=== PATIENT | female | born 1950 | race Two or more races ===

== ENCOUNTER 2023-12-12 17:14 | Inpatient (IN) | payer MEDICARE, MEDICAID ==
[~2023-12-12] VITALS: Ht 147.3 cm; Wt 65.6 kg
[2023-12-12 18:02] LABS: Urine Bacteria None Seen /hpf (None Seen)
[2023-12-12 18:29] LABS: Urine Blood Negative /uL (Negative); Urine Clarity Clear (Clear); Urine Color Light-Yellow (Yellow); Urine Protein, UAD Negative (Negative); Urine Specific Gravity 1.004 (1.001-1.035); Urine Urobilinogen Normal (Negative); Urine WBC 1 /hpf (0 - 5)
[2023-12-12 18:33] LABS: Basophils # (auto) 0 10 ^3/uL (0-0.2); Basophils % (auto) 0.6 % (0.0-2.0); Eosinophils # (auto) 0.1 10 ^3/uL (0-0.8); Eosinophils % (auto) 0.8 % (0.0-7.0); Hematocrit 36.7 % (36.0-46.0); Hemoglobin 13.2 g/dL (12.2-16.2); Lymphocytes # (auto) 1.5 10 ^3/uL (0.4-5.4); Lymphocytes % (auto) 19.4 % (10.0-50.0); Mean Corpuscular Hemoglobin 31.5 pg (28.0-32.0); Mean Corpuscular Hgb Conc. 35.9 g/dL (32.0-36.0); Mean Corpuscular Volume 87.9 fL (80.0-100.0); Monocytes # (auto) 0.7 10 ^3/uL (0-1.3); Monocytes % (auto) 9.3 % (0.0-12.0); Neutrophils # (auto) 5.6 10 ^3/uL (1.6-8.6); Neutrophils % (auto) 69.9 % (37.0-80.0); Red Blood Cells 4.18 10^6/uL (4.0-5.20); Red Cell Distribution Width 12.9 % (11.8-14.3)
[2023-12-12 18:46] LABS: Alanine Aminotransferase 29 U/L (7-40); Albumin 4.3 g/dL (3.2-4.8); Alkaline Phosphatase 76 U/L (46-116); Anion Gap 7 (5-15); Aspartate Aminotransferase 32 U/L (13-40); BUN/Creatinine Ratio 23.6 (10.0-20.0); Blood Urea Nitrogen 17 mg/dL (9-23); Calcium 9.7 mg/dL (8.7-10.4); Carbon Dioxide 22 mmol/L (20-30); Chloride 93 mmol/L (98-107); Glucose 114 mg/dL (74-106); Potassium 4.7 mmol/L (3.5-5.1); Sodium 122 mmol/L (136-145)
[2023-12-12 18:47] LABS: Total Protein 6.8 g/dL (5.7-8.2)
[2023-12-12 18:51] LABS: INR 1.01 (0.9-1.15); Partial Thromboplastin Time 32.4 SEC (24.5-34.5); Prothrombin Time 10.7 sec (9.3-11.8)
[2023-12-12] MEDS: SODIUM CHLORIDE 0.9% 1,000 ML IV ONE ×2 (19:30→21:48)
[2023-12-12 21:00] VITALS: RESP 14; O2SAT 95
[2023-12-12] MEDS: ONDANSETRON ODT 4 MG TAB PO ONE (21:11)
[2023-12-12] MEDS ORDERED: HYDROcodone-ACET 5/325MG TAB PO PRN (21:30)
[2023-12-12] MEDS ORDERED: DOCUSATE SOD 100 MG CAP PO PRN (21:30)
[2023-12-12] MEDS ORDERED: ACETAMINOPHEN 325 MG TAB PO PRN (21:30)
[2023-12-12] MEDS ORDERED: ONDANSETRON HCL 4 MG/2 ML VIAL IV PRN (21:30)
[2023-12-12 21:55] LABS: Chloride 96 mmol/L (98-107); Potassium 3.7 mmol/L (3.5-5.1); Sodium 123 mmol/L (136-145)
[2023-12-12 21:56] LABS: Anion Gap 11 (5-15); Carbon Dioxide 16 mmol/L (20-30)
[2023-12-12 21:57] LABS: Calcium 9.1 mg/dL (8.5-10.1)
[2023-12-12 22:01] LABS: Glucose 97 mg/dL (74-106)
[2023-12-12 22:02] LABS: BUN/Creatinine Ratio 16.1 (10.0-20.0); Blood Urea Nitrogen 10 mg/dL (9-23)
[2023-12-12] MEDS: SODIUM CHLOR 0.9% PF (SALINE LOCK) 10ML VIAL/SYR IV SCH (22:12)
[2023-12-13] VITALS (7 sets, daily range): BP systolic 110–139; BP diastolic 49–62; PULSE 59–98; RESP 14–20; TEMP 97.4–98.5; O2SAT 94–96
[2023-12-13 03:30] LABS: Chloride 101 mmol/L (98-107); Potassium 3.7 mmol/L (3.5-5.1)
[2023-12-13 03:31] LABS: Anion Gap 7 (5-15); Calcium 9.2 mg/dL (8.7-10.4); Carbon Dioxide 21 mmol/L (20-30)
[2023-12-13 03:33] LABS: Sodium 129 mmol/L (136-145)
[2023-12-13 03:36] LABS: BUN/Creatinine Ratio 15.9 (10.0-20.0); Blood Urea Nitrogen 10 mg/dL (9-23); Glucose 116 mg/dL (74-106)
[2023-12-13] MEDS: ENOXAPARIN SOD 40 MG/0.4 ML SYRINGE SC SCH (10:00)
[2023-12-13 10:28] LABS: Chloride 100 mmol/L (98-107); Potassium 3.9 mmol/L (3.5-5.1); Sodium 129 mmol/L (136-145)
[2023-12-13 10:29] LABS: Anion Gap 7 (5-15); Calcium 9.1 mg/dL (8.5-10.1); Carbon Dioxide 22 mmol/L (20-30)
[2023-12-13 10:34] LABS: BUN/Creatinine Ratio 15.3 (10.0-20.0); Blood Urea Nitrogen 11 mg/dL (9-23); Glucose 186 mg/dL (74-106)
[2023-12-13] MEDS: cefTRIAXone 2GM/50ML D5W 50 ML IV ONE (15:03)
[2023-12-13 15:23] LABS: Chloride 102 mmol/L (98-107); Potassium 4.2 mmol/L (3.5-5.1)
[2023-12-13 15:24] LABS: Anion Gap 10 (5-15); Carbon Dioxide 22 mmol/L (20-30)
[2023-12-13 15:25] LABS: Calcium 9.7 mg/dL (8.5-10.1)
[2023-12-13 15:29] LABS: Glucose 107 mg/dL (74-106); Sodium 134 mmol/L (136-145)
[2023-12-13 15:30] LABS: BUN/Creatinine Ratio 16.9 (10.0-20.0); Blood Urea Nitrogen 15 mg/dL (9-23)
[2023-12-14 01:00] VITALS: BP 103/50; PULSE 70; RESP 18; TEMP 98; O2SAT 94
[2023-12-14 05:00] VITALS: BP 123/64; PULSE 67; RESP 18; TEMP 97.8; O2SAT 99
[2023-12-14 08:00] VITALS: PULSE 70; PULSE 71; RESP 18; O2SAT 97
[2023-12-14] MEDS: cefTRIAXone 1GM/50ML D5W 50 ML IV SCH (09:47)
[2023-12-14] MEDS ORDERED: CIPR-173 PO (09:52)
[2023-12-14 10:04] VITALS: BP 143/63; PULSE 70; RESP 18; TEMP 98.1; O2SAT 97
[2023-12-14] MEDS ORDERED: LISI20TA56 PO (10:28)
[2023-12-14] MEDS: PNEUMOCOCCAL VACC POLYS 25 MCG/0.5 ML VIAL IM ONE (10:59)
[2023-12-14 12:12] VITALS: TEMP 36.7
== END 2023-12-14 13:26 | disposition home or self-care (01) | DRG 640 ==
LOC: ER 17:14 → TELE 21:20 → TELE-CENTR 23:49
PROVIDERS: ADMIT Internal Medicine; ATTEND Internal Medicine
DX: E87.1 Hypo-osmolality and hyponatremia (principal); G93.41 Metabolic encephalopathy; N39.0 Urinary tract infection, site not specified; E11.9 Type 2 diabetes mellitus without complications; E86.0 Dehydration; E78.00 Pure hypercholesterolemia, unspecified; I10 Essential (primary) hypertension; N63.20 Unspecified lump in the left breast, unspecified quadrant; T50.2X5A Adverse effect of carbonic-anhydrase inhibitors, benzothiadiazides and other diuretics, initial encounter; Z85.3 Personal history of malignant neoplasm of breast; Y92.89 Other specified places as the place of occurrence of the external cause; Z90.12 Acquired absence of left breast and nipple
CPT/HCPCS: 36415; 70450; 71045; 71275; 80048; 80053; 81001; 82962; 83690; 83930; 83935; 84484; 85025; 85379; 85610; 85730; 87081; 87086; 93005; 96365; 96366; 96372; G0378; Q0162

== ENCOUNTER 2023-12-17 14:33 | Inpatient (IN) | payer MEDICARE, MEDICAID ==
[~2023-12-17] VITALS: Ht 147.3 cm; Wt 68.8 kg
[~2023-12-17 14:33] MED LIST: CIPR-173 PO; LISI20TA56 PO
[2023-12-17] MEDS ORDERED: LABETALOL HCL 5 MG/ML 4ML SYRINGE IV ONE (15:45)
[2023-12-17 16:39] LABS: Basophils # (auto) 0.1 10 ^3/uL (0-0.2); Basophils % (auto) 0.7 % (0.0-2.0); Eosinophils # (auto) 0.1 10 ^3/uL (0-0.8); Eosinophils % (auto) 1.6 % (0.0-7.0); Hematocrit 38.3 % (36.0-46.0); Hemoglobin 13.2 g/dL (12.2-16.2); Lymphocytes # (auto) 1.8 10 ^3/uL (0.4-5.4); Lymphocytes % (auto) 24.1 % (10.0-50.0); Mean Corpuscular Hemoglobin 31.6 pg (28.0-32.0); Mean Corpuscular Hgb Conc. 34.4 g/dL (32.0-36.0); Mean Corpuscular Volume 91.9 fL (80.0-100.0); Monocytes # (auto) 0.7 10 ^3/uL (0-1.3); Monocytes % (auto) 9.3 % (0.0-12.0); Neutrophils # (auto) 4.9 10 ^3/uL (1.6-8.6); Neutrophils % (auto) 64.3 % (37.0-80.0); Red Blood Cells 4.17 10^6/uL (4.0-5.20); Red Cell Distribution Width 13.3 % (11.8-14.3); White Blood Cell 7.6 10^3/uL (4.4-10.8)
[2023-12-17 16:44] LABS: Alanine Aminotransferase 44 U/L (7-40); Albumin 4.5 g/dL (3.2-4.8); Alkaline Phosphatase 100 U/L (46-116); Anion Gap 8 (5-15); Aspartate Aminotransferase 33 U/L (13-40); BUN/Creatinine Ratio 13.6 (10.0-20.0); Bilirubin, Total 0.5 mg/dL (0.2-1.0); Blood Urea Nitrogen 9 mg/dL (9-23); Carbon Dioxide 21 mmol/L (20-30); Chloride 104 mmol/L (98-107); Glucose 130 mg/dL (74-106); Potassium 3.7 mmol/L (3.5-5.1); Sodium 133 mmol/L (136-145); Total Protein 7.4 g/dL (5.7-8.2)
[2023-12-17] MEDS: LIDOCAINE VISCOUS 2% 15ML UD PO ONE (17:51)
[2023-12-17] MEDS: ASPirin 325 MG TAB PO ONE (17:52)
[2023-12-17] MEDS: NITROGLYCERIN 0.4 MG SL TAB SL ONE ×2 (17:53→20:59)
[2023-12-17] MEDS: PANTOPRAZOLE 40 MG TAB PO ONE (17:54)
[2023-12-17] MEDS: hydrALAZINE HCL 20 MG/ML VL IV ONE (17:55)
[2023-12-17] MEDS: SUCRALFATE 1 GM TAB PO ONE (17:55)
[2023-12-17 18:11] VITALS: PULSE 69; RESP 17; O2SAT 96
[2023-12-17] MEDS: ONDANSETRON HCL 4 MG/2 ML VIAL IV ONE (18:17)
[2023-12-17] MEDS ORDERED: ACETAMINOPHEN 325 MG TAB PO PRN (21:30)
[2023-12-17] MEDS ORDERED: ONDANSETRON HCL 4 MG/2 ML VIAL IV PRN (21:30)
[2023-12-17] MEDS ORDERED: DEXTROSE (50%) 50ML SYRG IV PRN (21:30)
[2023-12-17] MEDS ORDERED: HYDROcodone-ACET 5/325MG TAB PO PRN (21:30)
[2023-12-17] MEDS: ATORVASTATIN 20 MG TAB PO SCH (23:07)
[2023-12-17] MEDS: cloNIDine HCL 0.1 MG TAB PO PRN (23:09)
[2023-12-17] MEDS: ACCU-CHEK COMFORT CURVE STRIP VI SCH (23:11)
[2023-12-17] MEDS: InsuLIN REG 1unit/0.01ml Soln (100units/ml) SC SCH (23:13)
[2023-12-17 23:58] VITALS: BP 120/50; PULSE 68; PULSE 69; RESP 16; RESP 18; TEMP 98.2; O2SAT 95; O2SAT 97
[2023-12-18] MEDS ORDERED: ATEN25TA PO (00:41)
[2023-12-18] MEDS ORDERED: METF-372 PO (00:41)
[2023-12-18] MEDS ORDERED: TRAM50TA2 PO (00:41)
[2023-12-18] MEDS ORDERED: ATOR40TA52 PO (00:41)
[2023-12-18] MEDS ORDERED: CLOP75TA70 PO (00:41)
[2023-12-18 05:00] VITALS: BP 130/88; PULSE 86; RESP 18; TEMP 98.1; O2SAT 98
[2023-12-18] MEDS: PANTOPRAZOLE 40 MG TAB PO SCH (06:01)
[2023-12-18 06:55] LABS: Basophils # (auto) 0 10 ^3/uL (0-0.2); Basophils % (auto) 0.8 % (0.0-2.0); Eosinophils # (auto) 0.1 10 ^3/uL (0-0.8); Eosinophils % (auto) 1.9 % (0.0-7.0); Hemoglobin 12.1 g/dL (12.2-16.2); Lymphocytes # (auto) 1.3 10 ^3/uL (0.4-5.4); Lymphocytes % (auto) 25.6 % (10.0-50.0); Mean Corpuscular Hemoglobin 31.7 pg (28.0-32.0); Mean Corpuscular Hgb Conc. 34.7 g/dL (32.0-36.0); Mean Corpuscular Volume 91.4 fL (80.0-100.0); Monocytes # (auto) 0.6 10 ^3/uL (0-1.3); Monocytes % (auto) 11.5 % (0.0-12.0); Neutrophils # (auto) 3.1 10 ^3/uL (1.6-8.6); Neutrophils % (auto) 60.2 % (37.0-80.0); Nucleated Red Blood Cells % 0.1 %; Red Blood Cells 3.83 10^6/uL (4.0-5.20); Red Cell Distribution Width 13.5 % (11.8-14.3); White Blood Cell 5.2 10^3/uL (4.4-10.8)
[2023-12-18 07:01] LABS: Chloride 105 mmol/L (98-107); Potassium 3.8 mmol/L (3.5-5.1); Sodium 135 mmol/L (136-145)
[2023-12-18 07:02] LABS: Anion Gap 8 (5-15); Calcium 9.4 mg/dL (8.5-10.1); Carbon Dioxide 22 mmol/L (20-30)
[2023-12-18 07:07] LABS: BUN/Creatinine Ratio 12.7 (10.0-20.0); Blood Urea Nitrogen 8 mg/dL (9-23); Glucose 127 mg/dL (74-106)
[2023-12-18 08:58] VITALS: BP 115/60; PULSE 61; RESP 16; TEMP 98.1; O2SAT 98
[2023-12-18] MEDS: LISINOPRIL 20 MG TAB PO SCH (11:41)
[2023-12-18] MEDS: ATENOLOL 25 MG TAB PO SCH (11:45)
[2023-12-18] MEDS: CLOPIDOGREL BISULFATE 75 MG TAB PO SCH (11:45)
[2023-12-18 13:00] VITALS: BP 107/63; PULSE 62; RESP 20; TEMP 98.1; O2SAT 95
[2023-12-18 17:05] VITALS: BP 107/63; PULSE 62; RESP 20; TEMP 98.1; O2SAT 95
== END 2023-12-18 17:40 | disposition home or self-care (01) | DRG 392 ==
LOC: ER 14:33 → OVERFLOW 22:21 → EAST 23:43
PROVIDERS: ADMIT Nurse Practitioner; ATTEND Nurse Practitioner
DX: K29.70 Gastritis, unspecified, without bleeding (principal); I16.0 Hypertensive urgency; I25.10 Atherosclerotic heart disease of native coronary artery without angina pectoris; E78.5 Hyperlipidemia, unspecified; E11.9 Type 2 diabetes mellitus without complications; I45.10 Unspecified right bundle-branch block; K21.9 Gastro-esophageal reflux disease without esophagitis; Z95.5 Presence of coronary angioplasty implant and graft; Z85.3 Personal history of malignant neoplasm of breast
CPT/HCPCS: 36415; 71045; 74176; 80048; 80053; 82962; 83690; 83880; 84484; 85025; 87081; 93005; G0378; J1815; J2405; J3490

== ENCOUNTER 2024-07-26 06:19 | Day surgery (SDC) | payer MEDICARE, MEDICAID ==
[~2024-07-26] VITALS: Ht 165.1 cm; Wt 65.3 kg
[~2024-07-26 06:19] MED LIST changes: +ASPI-543 PO; +ATEN25TA PO; +ATOR40TA52 PO; -CIPR-173 PO; +CLOP75TA70 PO; +ENAL1TAB48 PO; +ISOS1TAB28 PO; -LISI20TA56 PO; +METF-372 PO; +TRAM50TA2 PO
[2024-07-26] MEDS ORDERED: IODIXANOL 320MG/ML 100ML BTL IV ONE (07:33)
[2024-07-26] MEDS ORDERED: ANGIOMAX 250 MG VIAL IV ONE (08:36)
[2024-07-26] MEDS ORDERED: VERAPAMIL 2.5MG/ML INJ 2ML VIAL IV ONE (08:36)
[2024-07-26] MEDS ORDERED: fentaNYL CITRATE 100 MCG/2 ML VL ONE (08:36)
[2024-07-26] MEDS ORDERED: SODIUM CHL 0.9% 0 ML ONE (08:37)
[2024-07-26] MEDS ORDERED: LIDOCAINE 2%HCL (LOCAL ANESTH.) INJ 20ML MDV ONE (08:37)
[2024-07-26] MEDS ORDERED: MIDAZOLAM HCL 2MG/2ML 2ml VIAL (1mg/ml) ONE (08:37)
[2024-07-26] MEDS ORDERED: HEPARIN SODIUM (PORCINE) 5000 UNITS/ML 1ML VIAL ONE (09:02)
--- NOTE | 2024-07-26 09:14 | DVHOP2 ---
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 PREOPERATIVE DIAGNOSES: cad POSTOP DIAGNOSIS: cad DESCRIPTION OF PROCEDURE: The patient or appropriate family signed informed consent understanding the risks, benefits and alternatives of the procedure, they wished to proceed. The patient was brought to the cardiac lab intern in n.p.o. state. The patient was prepped in a sterile fashion. Sedation was used per cardiac cath protocol. I administered 2 mL of 2% lidocaine to the right wrist. With an antegrade front wall puncture. I cannulated the right radial artery and placed a 6-Indian Glidesheath slender. Next, an intra-arterial spasmolytic was administered. Next, a - 5 Indian Blanco catheter and were used for coronary angiogram and LVEDP measurement and pressure pullback. At the completion of procedure, all guides and wires were removed, and there were no immediate complications. FINDINGS: RCA: Moderate vessel off the right sinus of Valsalva, there is a mid RCA EXPORT AGENT with L to R collaterals. this is unchanged from 202 LEFT MAIN: Moderate size left main, it bifurcates into LAD and circumflex. mild plaque. CIRCUMFLEX: Moderate caliber vessel coming off the left main . prox CX has a 95% calcific stenosis (this is new from 202), several OM branches with grade disease. laterally LAD: LAD is a moderate caliber vessel coming of the left main. distal LAD has a calcific 95% stenosis (similar to 2022) with a distal apical LAD target LVEDP of 6 mmhg CONCLUSIONS: 1. severe 3v cad PLAN: Aggressive risk factor modification and medical management for the patient. consider cabg VERONICA Li MD Jul 26, 2024 09:14
--- NOTE | 2024-07-26 10:47 | DVH ---
CHEST RADIOGRAPH Indication: Pain Technique: Single frontal view of the chest was obtained COMPARISON: None FINDINGS: Lines and Tubes: None Lungs: Clear Pleura: No effusion. No pneumothorax. Cardiomediastinal contours: Unremarkable Bones: Unremarkable IMPRESSION: No acute disease.
--- NOTE | 2024-07-26 14:20 | ECG ---
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
== END 2024-07-26 11:50 | disposition home or self-care (01) ==
LOC: CATH 06:19
PROVIDERS: ATTEND Internal Medicine
DX: I25.10 Atherosclerotic heart disease of native coronary artery without angina pectoris (principal); I44.0 Atrioventricular block, first degree; I45.10 Unspecified right bundle-branch block; E11.9 Type 2 diabetes mellitus without complications; I10 Essential (primary) hypertension; E66.9 Obesity, unspecified; E78.00 Pure hypercholesterolemia, unspecified; R06.02 Shortness of breath; I34.0 Nonrheumatic mitral (valve) insufficiency; Z90.710 Acquired absence of both cervix and uterus; Z90.49 Acquired absence of other specified parts of digestive tract; Z79.899 Other long term (current) drug therapy; Z98.890 Other specified postprocedural states
CPT/HCPCS: 71045; 93005; 93458; C1894; J1644; J2250; J3010; Q9967; 99152

== ENCOUNTER 2024-08-08 22:13 | Emergency (ER) | payer MEDICARE, MEDICAID ==
[~2024-08-08] VITALS: Ht 147.3 cm; Wt 63.7 kg
[2024-08-08 23:07] LABS: Urine Bacteria None Seen /hpf (None Seen)
[2024-08-08 23:10] LABS: Basophils # (auto) 0 10 ^3/uL (0-0.2); Basophils % (auto) 0.6 % (0.0-2.0); Eosinophils # (auto) 0.1 10 ^3/uL (0-0.8); Eosinophils % (auto) 1.4 % (0.0-7.0); Hematocrit 33.8 % (36.0-46.0); Lymphocytes % (auto) 15.6 % (10.0-50.0); Mean Corpuscular Hemoglobin 31.7 pg (28.0-32.0); Mean Corpuscular Hgb Conc. 35.4 g/dL (32.0-36.0); Mean Corpuscular Volume 89.7 fL (80.0-100.0); Monocytes # (auto) 0.7 10 ^3/uL (0-1.3); Monocytes % (auto) 12.1 % (0.0-12.0); Neutrophils # (auto) 4.3 10 ^3/uL (1.6-8.6); Neutrophils % (auto) 70.3 % (37.0-80.0); Nucleated Red Blood Cells % 0.2 %; Platelet Count (auto) 252 10^3/uL (140-450); Red Blood Cells 3.77 10^6/uL (4.0-5.20); Red Cell Distribution Width 13.7 % (11.8-14.3); White Blood Cell 6.1 10^3/uL (4.4-10.8)
--- NOTE | 2024-08-08 23:15 | DVH ---
CHEST RADIOGRAPH Indication: Chest pain Technique: Single frontal view of the chest was obtained Comparison: XY CHEST XRAY 1 VIEW on DOS: 07/26/24, XY CHEST PORTABLE on DOS: 12/17/23, XY CHEST PORTABLE on DOS: 12/12/23 FINDINGS: Lines and Tubes: None Lungs: Clear Pleura: No effusion. No pneumothorax. Cardiomediastinal contours: Unremarkable Bones: Unremarkable IMPRESSION: Clear lungs.
--- NOTE | 2024-08-08 23:16 | DVH ---
CT HEAD WITHOUT CONTRAST INDICATION: Headache, elevated BP COMPARISON: CT HEAD WITHOUT CONTRAST on DOS: 12/12/23 TECHNIQUE: CT of the head without intravenous contrast. RADIATION DOSE: CTDIvol: 49.17 mGy, DLP: 788.37 mGy*cm FINDINGS: There is no evidence of intracranial hemorrhage, infarct, extra-axial collection, mass effect, midli ne shift, herniation or hydrocephalus. The ventricles, sulci and cisterns are normal. The garcia-whit e differentiation is normal. Visualized paranasal sinuses and mastoid air cells are clear. Soft tis sues and osseous structures are unremarkable. IMPRESSION: No abnormality.
[2024-08-08 23:20] LABS: Urine Blood Negative /uL (Negative); Urine Clarity Clear (Clear); Urine Color Light-Yellow (Yellow); Urine Protein, UAD Negative (Negative); Urine Specific Gravity 1.009 (1.001-1.035); Urine Squamous Epithelial Cell FEW /hpf (<5); Urine Urobilinogen Normal (Negative); Urine WBC 2 /HPF (0-5)
--- NOTE | 2024-08-08 23:28 | ED.PDOC ---
History of Present Illness HPI Comments 74-year-old female with past medical history pertinent for HTN, DM, presents to ED for left-sided chest pain x4 days, associated with headache, blurry vision, dizziness, nausea. Patient denies any shortness of breath, numbness, tingling, weakness. She describes her headache as a throbbing sensation. Patient states that her chest pain was intermittent, however has constant. She reports taking Tylenol without relief of symptoms. Patient also states that he has been taking her blood pressure at home which has been elevated. Chief Complaint: High Blood Pressure Time Seen by MD: 22:15 Primary Care Provider: Beto Reviewed Notes: Nurses Notes, Medications, Allergies Allergies: Coded Allergies: NO KNOWN ALLERGIES (Unverified , 07/21/24) Home Meds Reported Medications Aspirin (Aspir-Low) 81 Mg Tab, 81 MG PO DAILY for CAD, MG 07/21/24 Isosorbide Mononitrate (Isosorbide Mononitrate Er) 30 Mg Tab, 1 TAB PO DAILY for HTN, #30 TAB 5 Refills 07/21/24 Enalapril Maleate (Enalapril Maleate) 20 Mg Tab, 1 TAB PO DAILY for HTN, #90 TAB 1 Refill 07/21/24 Clopidogrel Bisulfate (CLOPIDOGREL) 75 Mg Tab, 1 TAB PO DAILY for S/P CARDIAC STENT 12/18/23 Metformin Hydrochloride (Metformin Hcl) 1,000 Mg Tab, 1 TAB PO BID for DIABETES 12/18/23 Atorvastatin Calcium (ATORVASTATIN CALCIUM) 40 Mg Tab, 1 TAB PO DAILY for HIGH CHOLESTEROL 12/18/23 Atenolol (Atenolol) 25 Mg Tab, 1 TAB PO DAILY for HTN 12/18/23 Tramadol Hcl (Tramadol Hcl) 50 Mg Tab, 1 TAB PO DAILYPRN PRN for PAIN 12/18/23 Mode of Arrival: Ambulatory Past Medical History PAST MEDICAL HISTORY: DM, High Lipids, HTN Surgical History: Denies 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 Family History Family History: Reviewed,noncontributory to illness, No family hx of Cancer, No family hx of DM, No family hx of Heart arthur, No family hx of HTN, No family hx ofKidney arthur, No family hx of Liver arthur, No family hx of Lung arthur, No family hx of Stroke Social History Smoker: Non-Smoker Alcohol: Denies ETOH Use Drugs: Denies Drug Use Constitutional: denies: chills, diaphoresis, fatigue, fever, malaise, sweats, weakness, others EENTM: reports: blurred vision; denies: double vision, ear bleeding, ear discharge, ear drainage, ear pain, ear ringing, eye pain, eye redness, hearing loss, mouth pain, mouth swelling, nasal discharge, nose bleeding, nose congestion, nose pain, photophobia, tearing, throat pain, throat swelling, voice changes, others Respiratory: denies: cough, hemoptysis, orthopnea, SOB at rest, shortness of breath, SOB with excertion, stridor, wheezing, others Cardiovascular: reports: chest pain, dizzy spells; denies: diaphoresis, Dyspnea on exertion, edema, irregular heart beat, left arm pain, lightheadedness, palpitations, PND, syncope, others Gastrointestinal: reports: nausea; denies: abdomen distended, abdominal pain, blood streaked bowels, constipated, diarrhea, dysphagia, difficulty swallowing, hematemesis, melena, poor appetite, poor fluid intake, rectal bleeding, rectal pain, vomiting, others Genitourinary: denies: abnormal vagina bleeding, burning, dyspareunia, dysuria, flank pain, frequency, hematuria, incontinence, pain, , vagina discharge, urgency, others Neurological: reports: headache; denies: dizziness, fainting, left sided numbness, left sided weakness, numbness, paresthesia, pre-existing deficit, right sided numbness, right sided weakness, seizure, speech problems, tingling, tremors, weakness, others Musculoskeletal: denies: back pain, gout, joint pain, joint swelling, muscle pain, muscle stiffness, neck pain, others Integumetry: denies: bruises, change in color, change in hair/nails, dryness, laceration, lesions, lumps, rash, wounds, others Allergic/Immunocompromised: denies: Difficulty Healing, Frequent Infections, Hives, Itching, others Hematologic/Lymphatic: denies: anemia, blood clots, easy bleeding, easy bruisi ng, swollen glands, others Endocrine: denies: excessive hunger, excessive sweating, excessive thirst, exce ssive urination, flushing, intolerance to cold, intolerance to heat, unexplained weight gain, unexplained weight loss, others Psychiatric: denies: anxiety, bipolar disorder, depression, hopeless, panic disorder, schizophrenia, sleepless, suicidal, others All Other Systems: Reviewed and Negative Physical Exam General Appearance: No Apparent Distress, Normal HEENT: Normal ENT Inspection, Pharynx Normal, TMs Normal Neck: Full Range of Motion, Non-Tender, Normal, Normal Inspection Respiratory: Chest Non-Tender, Lungs Clear, No Accessory Muscle Use, No Respiratory Distress, Normal Breath Sounds Cardiovascular: No Edema, No JVD, No Murmur, No Gallop, Normal Peripheral Pulses, Regular Rate/Rhythm Breast Exam: Deferred Gastrointestinal: No Organomegaly, Non Tender, No Pulsatile Mass, Normal Bowel Sounds, Soft Genitalia: Deferred Pelvic: Deferred Rectal: Deferred Extremities: No calf tenderness, Normal capillary refill, Normal inspection, Normal range of motion, Non-tender, No pedal edema Musculoskeletal : Apperance: Normal Neurologic: Alert, hiv prevention specialist II-XII nml as Tested, No Motor Deficits, Normal Affect, Normal Mood, No Sensory Deficits, Other (5/5 strength in bilateral upper and lo wer extremities. Negative facial droop. Negative pronator drift.) Cerebellar Function: Normal Reflexes: Normal Skin: Dry, Normal Color, Warm Lymphatic: No Adenopathy Was a procedure done? Was a procedure done?: No EKG EKG : Pulse Rate (adult): 72 [place]: Normal Cardiac Rhythm: NSR Block: RBBB Hypertrophy: None ST: Normal Differential Dx Considerations may include: ACS, CVA, TIA, musculoskeletal chest pain, hypertensive urgency, hypertensive em ergency X-Ray, Labs, Meds, VS Vital Signs Date Time Temp Pulse Resp B/P (MAP) Pulse Ox O2 Delivery O2 Flow Rate FiO2 08/09/24 00:56 107/55 08/09/24 00:55 71 18 107/55 (72) 94 08/09/24 00:13 96 Room Air* 0 21 08/08/24 23:59 169/62 08/08/24 23:55 98.2 71 18 169/62 (97) 95 98.2 08/08/24 23:27 72 08/08/24 22:38 72 08/08/24 22:20 98.7 83 14 183/83 (116) 98 Lab Test 08/09/24 01:20 08/08/24 23:59 08/08/24 22:45 08/08/24 22:32 Range/Units Troponin I High Sensitivity 7 6 6 </=34 ng/L White Blood Count 6.1 4.4-10.8 10^3/uL Red Blood Count 3.77 L 4.0-5.20 10^6/uL Hemoglobin 12.0 L 12.2-16.2 g/dL Hematocrit 33.8 L 36.0-46.0 % Mean Corpuscular Volume 89.7 80.0-100.0 fL Mean Corpuscular Hemoglobin 31.7 28.0-32.0 pg Mean Corpuscular Hemoglobin Concent 35.4 32.0-36.0 g/dL Red Cell Distribution Width 13.7 11.8-14.3 % Platelet Count 252 140-450 10^3/uL Mean Platelet Volume 7.2 6.9-10.8 fL Neutrophils (%) (Auto) 70.3 37.0-80.0 % Lymphocytes (%) (Auto) 15.6 10.0-50.0 % Monocytes (%) (Auto) 12.1 H 0.0-12.0 % Eosinophils (%) (Auto) 1.4 0.0-7.0 % Basophils (%) (Auto) 0.6 0.0-2.0 % Neutrophils # (Auto) 4.3 1.6-8.6 10 ^3/uL Lymphocytes # (Auto) 1.0 0.4-5.4 10 ^3/uL Monocytes # (Auto) 0.7 0-1.3 10 ^3/uL Eosinophils # (Auto) 0.1 0-0.8 10 ^3/uL Basophils # (Auto) 0 0-0.2 10 ^3/uL Nucleated Red Blood Cells 0.2 % Sodium Level 129 L 136-145 mmol/L Potassium Level 3.5 3.5-5.1 mmol/L Chloride Level 95 L 98-107 mmol/L Carbon Dioxide Level 21 20-31 mmol/L Anion Gap 13 5-15 Blood Urea Nitrogen 15 9-23 mg/dL Creatinine 0.75 0.550-1.02 mg/dL Glomerular Filtration Rate Calc 83 >90 mL/min BUN/Creatinine Ratio 20.0 10.0-20.0 Serum Glucose 147 H 74-106 mg/dL Calcium Level 10.2 8.7-10.4 mg/dL Total Bilirubin 0.9 0.2-1.0 mg/dL Aspartate Amino Transferase (AST) 27 13-40 U/L Alanine Aminotransferase (ALT) 24 7-40 U/L Alkaline Phosphatase 71 46-116 U/L B-Type Natriuretic Peptide 248.55 0-100 pg/mL Total Protein 6.9 5.7-8.2 g/dL Albumin 4.5 3.2-4.8 g/dL POC Glucose 151 H 70-106 mg/dl Test 08/08/24 22:28 Range/Units Urine Color Light-yellow Yellow Urine Clarity Clear Clear Urine pH 6.0 5.0-9.0 Urine Specific [place] 1.009 1.001-1.035 Urine Protein Negative Negative Urine Ketones Negative Negative Urine Blood Negative Negative /uL Urine Nitrite Negative Negative Urine Bilirubin Negative Negative Urine Urobilinogen Normal Negative mg/dL Urine Leukocyte Esterase Negative Negative /uL Urine RBC 2 0 - 4 /hpf Urine Microscopic WBC 2 0-5 /HPF Urine Squamous Epithelial Cells Few <5 /hpf Urine Bacteria None seen None Seen /hpf Urine Glucose Normal Normal mg/dL Current Medications Medications (Trade) Dose Ordered Sig/Bailey Route Start Time Stop Time Status Last Admin Clonidine HCl (Catapres Tablet) 0.1 mg ONCE ONCE PO 08/08/24 22:30 08/08/24 22:31 DC 08/08/24 23:59 Aspirin 325 mg ONCE ONCE PO 08/08/24 23:30 08/08/24 23:31 DC 08/08/24 23:59 X-Ray, Labs, Meds, VS Comment CT Head IMPRESSION: No abnormality. CXR IMPRESSION: Clear lungs. MDM: Patient with history as above presented with chest pain. History obtained from cynthia daigle. Patient was nontoxic, stable, afebrile, ambulatory, no acute distress. Exam as above. Labs reviewed. CBC did not show leukocytosis. Mild anemia noted with hemoglobin at 12 and hematocrit at 33.8. CMP showed mild hyponatremia at 129. Troponin x3 was negative. BNP mildly elevated at 248.55. Urinalysis was negative for acute infection. Independently reviewed imaging. Chest x-ray did not show acute cardiopulmonary disease. CT head was negative. EKG was reviewed by me. Normal sinus rhythm at 72 beats per minute, right bundle-branch block, no hypertrophy, no AV blocks, no ST-T wave abnormalities. Reviewed external records. All findings were discussed with the patient. Differential diagnosis considered. Overall presentation is consistent with hypertensive urgency. Low suspicion for hypertensive emergency, ACS, CVA. Patient was treated with clonidine and aspirin with improvement in symptoms. Offered patient to be admitted to the hospital for further evaluation, however patient states that she has a follow up appointment with her PCP and will like to be discharged home. She states that her symptoms have improved. She denies any headache or chest pain. Patient states that she will return to the ED immediately for worsening symptoms. Patient was reevaluated and vital signs were reviewed. Consideration was given for admission, but the patient was stable for outpatient management. Disposition: Discussed the need to follow up diagnostics, including incidental findings. Discharged the patient with instructions to obtain outpatient follow up in 1-2 days of today's symptoms and findings, with strict return precautions if patient develops new or worsening symptoms. This medical document was created using the [employer] system. Although this document has been carefully reviewed, there may still be some phonetic and typographical errors, which are due to imperfections of the software program, and do not reflect any compromise in the patient's medical care. Time of 1ST Reevaluation: 23:27 Reevaluation 1ST: Improved Time of 2ND Reevaluation: 02:32 Reevaluation 2ND: Improved Patient Education/Counseling: Diagnosis, Treatment, Prognosis, Need For Follow Up Family Education/Counseling: No Family Present Departure 1 Departure Time of Disposition: 02:33 Impression: Primary Impression: Hypertensive urgency Disposition: 01 HOME / SELF CARE / HOMELESS Condition: Fair Critical Care Note Critical Care Time?: No Stability Stability form required: No Heart Score Heart Score: Heart Score Response (Comments) Value History Slightly Suspicious 0 EKG Normal 0 Age >65 2 Risk Factors >3 or Hx ASHD 2 Troponin Normal limit 0 Total 4 ERIC TSANG PAC Aug 08, 2024 23:27
[2024-08-08 23:30] LABS: Alanine Aminotransferase 24 U/L (7-40); Albumin 4.5 g/dL (3.2-4.8); Alkaline Phosphatase 71 U/L (46-116); Anion Gap 13 (5-15); Aspartate Aminotransferase 27 U/L (13-40); Bilirubin, Total 0.9 mg/dL (0.2-1.0); Blood Urea Nitrogen 15 mg/dL (9-23); Calcium 10.2 mg/dL (8.7-10.4); Carbon Dioxide 21 mmol/L (20-31); Chloride 95 mmol/L (98-107); Glucose 147 mg/dL (74-106); Potassium 3.5 mmol/L (3.5-5.1); Sodium 129 mmol/L (136-145); Total Protein 6.9 g/dL (5.7-8.2)
[2024-08-08] MEDS: cloNIDine HCL 0.1 MG TAB PO ONE (23:59)
[2024-08-08] MEDS: ASPirin 325 MG TAB PO ONE (23:59)
[2024-08-09 00:13] VITALS: O2SAT 96
[2024-08-09 03:10] VITALS: BP 135/61; PULSE 63; RESP 18; TEMP 98.2; O2SAT 95
--- NOTE | 2024-08-09 10:51 | ECG ---
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
== END 2024-08-09 03:10 | disposition home or self-care (01) ==
LOC: ER 22:13
DX: I16.0 Hypertensive urgency (principal); E11.9 Type 2 diabetes mellitus without complications; I10 Essential (primary) hypertension; E78.5 Hyperlipidemia, unspecified; R07.89 Other chest pain; R42 Dizziness and giddiness; R11.0 Nausea; Z79.899 Other long term (current) drug therapy; Z79.02 Long term (current) use of antithrombotics/antiplatelets
CPT/HCPCS: 36415; 70450; 71045; 80053; 81001; 82962; 83880; 84484; 85025; 93005

== ENCOUNTER 2025-02-28 23:54 | Inpatient (IN) | payer MEDICARE, MEDICAID ==
[~2025-02-28] VITALS: Ht 147.3 cm; Wt 64.8 kg
--- NOTE | 2025-03-01 00:29 | ED.PDOC ---
HPI Comments HPI: Poor Historian. 74-year-old female presents to emergency department for one day history of left- sided chest pain radiating to left upper extremity. She checked her blood pressure which was normal. She took some aspirin which helped her with the symptoms and she took some atenolol as well prior to arrival. Patient states that she feels better now. Patient has associated dizziness and nausea with the chest discomfort. Patient states that this happened while she was at rest. No alleviating or precipitating factors. Past Medical History: Hypertension, hyperlipidemia, diabetes Past Surgical History: Cholecystectomy, hysterectomy, some breast surgery REVIEW OF SYSTEMS: CONSTITUTIONAL: Denies acute: fever, diaphoresis, chills, generalized weakness. HEAD: Denies acute: headache, photophobia Eyes: Denies acute: Double vision, vision loss, eye pain, eye discharge. EARS: Denies acute: tinnitus, hearing loss, ear discharge, ear pain, THROAT: Denies acute: sore throat, swelling, difficulty swallowing , pain with swallowing, change in voice. NECK: Denies acute: neck pain, neck swelling, stiff neck. HEART: Denies acute : , palpitations, LUNGS: Denies acute: SOB, wheezing, cough, hemoptysis ABDOMEN: Denies acute: abdominal pain, Vomiting, diarrhea, melena , hematemesis, hematochezia SKIN: Denies acute: rash, redness, lesions, itchiness. EXTREMITIES: Denies acute: calf pain, numbness, tingling, weakness, denies pain in extremity. Denies acute: Low back pain. Neuro: Denies acute: focal neurological deficit, motor or sensory focal neurological deficit, tremors, seizure like activity, confusion, change in mental status, loss of bowel or bladder function, cauda equina like symptoms. : Denies acute: dysuria, hematuria, flank pain, increase in urinary frequency. PSYCH: Denies acute: hallucination, suicidal ideation, homicidal ideation. FEMALE: Denies acute: abnormal vaginal bleeding, foul odor, unusual discharge. PHYSICAL EXAM: General: ----no----acute distress, awake and alert. Head: normocephalic, atraumatic. Neck: supple, trachea is midline, no swelling. Throat: Normal phonation. Eyes:, no erythema, no purulent discharge, no proptosis, no icterus. Heart: regular rate, regular rhythm, no significant murmur appreciated. Lungs: no apparent respiratory distress, Able to speak in full sentences. No wheezing, no rhonchi, no crackles. No stridors Clear to auscultation bilaterally. Abdomen: non tender to palpation, non distended, soft, no guarding, no rebound, + bowel sounds. Neuro: Awake, Alert, oriented to name, self, situation, follows commands GCS=15. Speech is normal. Skin: no petechia, no purpura, no cyanosis, non-pale, not jaundice. Lower extremities: --no - Pitting edema no deformity, no focal swelling, no calf TTP. Makes eye contact. moves all four extremities. Face: no apparent facial droop. ED COURSE: DISCLAIMER: This medical document was created using an electronic medical record system with voice recognition software and computerized dictation system. Although this do cument has been carefully reviewed, there might still be some phonetic and typographical errors. Occasional wrong-word or "sound-alike" substitutions may have occurred due to the inherent limitations of voice recognition software. These areas are purely typographical due to imperfections of the software programs and do not reflect any compromise in the patient's medical care. Please read the chart carefully and recognize, using context, where these substitutions have occurred. Chief Complaint: Chest Pain Time Seen by MD: 00:18 Primary Care Provider: Beto Montanez Notes: Allergies Allergies: Coded Allergies: NO KNOWN ALLERGIES (Unverified , 07/21/24) Home Meds Reported Medications Aspirin (Aspir-Low) 81 Mg Tab, 81 MG PO DAILY for CAD, MG 07/21/24 Isosorbide Mononitrate (Isosorbide Mononitrate Er) 30 Mg Tab, 1 TAB PO DAILY for HTN, #30 TAB 5 Refills 07/21/24 Enalapril Maleate (Enalapril Maleate) 20 Mg Tab, 1 TAB PO DAILY for HTN, #90 TAB 1 Refill 07/21/24 Clopidogrel Bisulfate (CLOPIDOGREL) 75 Mg Tab, 1 TAB PO DAILY for S/P CARDIAC STENT 12/18/23 Metformin Hydrochloride (Metformin Hcl) 1,000 Mg Tab, 1 TAB PO BID for DIABETES 12/18/23 Atorvastatin Calcium (ATORVASTATIN CALCIUM) 40 Mg Tab, 1 TAB PO DAILY for HIGH CHOLESTEROL 12/18/23 Atenolol (Atenolol) 25 Mg Tab, 1 TAB PO DAILY for HTN 12/18/23 Tramadol Hcl (Tramadol Hcl) 50 Mg Tab, 1 TAB PO DAILYPRN PRN for PAIN 12/18/23 Information Source: Patient Mode of Arrival: Wheelchair Past Medical History PAST MEDICAL HISTORY: DM, High Lipids, HTN Surgical History: 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 Was a procedure done?: No CP Differential Dx Differential Diagnosis: N/A Differential Diagnosis: Other (Ddx include but not limitied to gastritis, m usculoskeletal pain, radiculopathy, atypical chest pain, dissection, aneurysm, ACS, unstable angina, hiatal hernia, GERD, anxiety, costochondritis, PE, pneumothroax, neoplasm, cardiac ischemia, drug abuse, anemia.) X-Ray, Labs, Meds, VS Vital Signs Date Time Temp Pulse Resp B/P (MAP) Pulse Ox O2 Delivery O2 Flow Rate FiO2 03/01/25 01:31 62 03/01/25 00:20 63 02/28/25 23:57 97.9 68 19 148/72 97 97.9 Lab Test 03/01/25 00:20 03/01/25 00:08 Range/Units White Blood Count 9.1 4.4-10.8 10^3/uL Red Blood Count 4.01 4.0-5.20 10^6/uL Hemoglobin 12.5 12.2-16.2 g/dL Hematocrit 35.2 L 36.0-46.0 % Mean Corpuscular Volume 87.7 80.0-100.0 fL Mean Corpuscular Hemoglobin 31.1 28.0-32.0 pg Mean Corpuscular Hemoglobin Concent 35.5 32.0-36.0 g/dL Red Cell Distribution Width 14.3 11.8-14.3 % Platelet Count 249 140-450 10^3/uL Mean Platelet Volume 7.3 6.9-10.8 fL Neutrophils (%) (Auto) 75.2 37.0-80.0 % Lymphocytes (%) (Auto) 12.3 10.0-50.0 % Monocytes (%) (Auto) 10.2 0.0-12.0 % Eosinophils (%) (Auto) 1.8 0.0-7.0 % Basophils (%) (Auto) 0.5 0.0-2.0 % Neutrophils # (Auto) 6.8 1.6-8.6 10 ^3/uL Lymphocytes # (Auto) 1.1 0.4-5.4 10 ^3/uL Monocytes # (Auto) 0.9 0-1.3 10 ^3/uL Eosinophils # (Auto) 0.2 0-0.8 10 ^3/uL Basophils # (Auto) 0 0-0.2 10 ^3/uL Nucleated Red Blood Cells 0.0 % Sodium Level 127 L 136-145 mmol/L Potassium Level 3.7 3.5-5.1 mmol/L Chloride Level 90 L 98-107 mmol/L Carbon Dioxide Level 25 20-31 mmol/L Anion Gap 12 5-15 Blood Urea Nitrogen 13 9-23 mg/dL Creatinine 0.72 0.550-1.02 mg/dL Glomerular Filtration Rate Calc 87 >90 mL/min BUN/Creatinine Ratio 18.1 10.0-20.0 Serum Glucose 151 H 74-106 mg/dL Calcium Level 9.7 8.7-10.4 mg/dL Total Bilirubin 1.3 H 0.2-1.0 mg/dL Aspartate Amino Transferase (AST) 33 13-40 U/L Alanine Aminotransferase (ALT) 28 7-40 U/L Alkaline Phosphatase 81 46-116 U/L Troponin I High Sensitivity 23 </=34 ng/L B-Type Natriuretic Peptide 141.60 0-100 pg/mL Total Protein 7.3 5.7-8.2 g/dL Albumin 4.5 3.2-4.8 g/dL POC Glucose 155 H 70-106 mg/dl [facility] [address] [facility] [address] Ph: [phone] DIAGNOSTIC IMAGING Diagnostic Imaging Report : [id number] Signed PATIENT: LAURITA HAAS DEACCT: [id number] UNIT: [id number] : 1950 LOC: ER ROOM / BED: / AGE / SEX: 74 / F ADM STATUS: REG ER SERVICE ORDERING PHYSICIAN: AMAYA SHERIDAN DO PROCEDURE(s): CXRP - CHEST PORTABLE REASON: cp sob ORDER NUMBER(s): [id number], ACCESSION NUMBER(s): [id number] CHEST RADIOGRAPH Indication: cp sob Technique: 1 view Comparison: XY CHEST XRAY 1 VIEW on DOS: 08/08/24, XY CHEST XRAY 1 VIEW on DOS: 07/26/24, XY CHEST PORTABLE on DOS: 12/17/23, XY CHEST PORTABLE on DOS: 12/12/23 FINDINGS: Lines and Tubes: None Lungs/Pleura: No focal consolidation, pleural effusion or pneumothorax. Mild infrahilar scarring/atelectasis. Cardiomediastinum: Unremarkable. Other: No acute osseous abnormality. IMPRESSION: 1. No acute cardiopulmonary abnormality. ATED BY: SHARON HUDSON MD DICTATED DATE/TIME: 03/01/25204 SIGNED BY: SHARON HUDSON MD SIGNED DATE/TIME: 03/01/25204 CC: Time of 1ST Reevaluation: 02:12 Reevaluation 1ST: Improved Patient Education/Counseling: Diagnosis, Treatment Family Education/Counseling: Other Comments MDM: patient presented with the above HPI.--cardiac--workup was initiated. patient was found with the above mentioned diagnosis. the following medications were ordered: please refer to order lists of meds and tests obtained by myself Dr. Sheridan. Patient ED course and VS have been stabilized. Patient has been reassessed in the ED and remained in a stable condition. Pertinent incidental findings were discussed with the patient and/or family. Patient/family voices understanding and is agreeable with plan. Patient has been observed in the ED adequate length of time to insure improvement/stability. Escalation of care considered: Consideration of escalation to observation or admission Patient was ADMITTED to the medicine team for further evaluation and treatment of their presentation. All the reports of any imaging studies that were ordered by myself were reviewed by myself. Departure 1 Departure Time of Disposition: 00:28 Impression: Primary Impression: Chest pain Additional Impression: Hyponatremia Disposition: 09 ADMITTED INPATIENT Admit to: Tele Condition: Guarded Discharged With: Self Critical Care Note Critical Care Time?: Yes (35 min-critical care time only) Heart Score Heart Score: Heart Score Response (Comments) Value History Highly Suspicious 2 EKG Repolarization Disturb 1 Age >65 2 Risk Factors >3 or Hx ASHD 2 Troponin Normal limit 0 Total 7 AMAYA SHERIDAN DO Mar 01, 2025 00:29
[2025-03-01 00:51] LABS: Hematocrit 35.2 % (36.0-46.0); Hemoglobin 12.5 g/dL (12.2-16.2); Mean Corpuscular Hemoglobin 31.1 pg (28.0-32.0); Mean Corpuscular Volume 87.7 fL (80.0-100.0); Nucleated Red Blood Cells % 0.0 %
[2025-03-01 00:58] LABS: Alanine Aminotransferase 28 U/L (7-40); Albumin 4.5 g/dL (3.2-4.8); Alkaline Phosphatase 81 U/L (46-116); Anion Gap 12 (5-15); BUN/Creatinine Ratio 18.1 (10.0-20.0); Blood Urea Nitrogen 13 mg/dL (9-23); Calcium 9.7 mg/dL (8.7-10.4); Carbon Dioxide 25 mmol/L (20-31); Potassium 3.7 mmol/L (3.5-5.1); Total Protein 7.3 g/dL (5.7-8.2)
[2025-03-01 01:08] LABS: Bilirubin, Total 1.3 mg/dL (0.2-1.0); Chloride 90 mmol/L (98-107); Glucose 151 mg/dL (74-106); Sodium 127 mmol/L (136-145)
[2025-03-01] MEDS: SODIUM CHLORIDE 0.9% 500 ML IV ONE (01:15)
--- NOTE | 2025-03-01 02:07 | DVH ---
CHEST RADIOGRAPH Indication: cp sob Technique: 1 view Comparison: XY CHEST XRAY 1 VIEW on DOS: 08/08/24, XY CHEST XRAY 1 VIEW on DOS: 07/26/24, XY CHEST PORT ABLE on DOS: 12/17/23, XY CHEST PORTABLE on DOS: 12/12/23 FINDINGS: Lines and Tubes: None Lungs/Pleura: No focal consolidation, pleural effusion or pneumothorax. Mild infrahilar scarring/atel ectasis. Cardiomediastinum: Unremarkable. Other: No acute osseous abnormality. IMPRESSION: 1. No acute cardiopulmonary abnormality.
--- NOTE | 2025-03-01 06:34 | ECG ---
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
--- NOTE | 2025-03-01 06:35 | ECG ---
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
--- NOTE | 2025-03-01 06:35 | ECG ---
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
[2025-03-01] MEDS ORDERED: DEXTROSE (50%) 50ML SYRG IV PRN (13:30)
[2025-03-01] MEDS ORDERED: ONDANSETRON HCL 4 MG/2 ML VIAL IV PRN (13:30)
[2025-03-01] MEDS ORDERED: MORPHINE SULFATE INJ 2 MG/ml SYRG IV PRN (13:30)
[2025-03-01] MEDS ORDERED: NITROGLYCERIN 0.4 MG SL TAB SL PRN (13:30)
[2025-03-01] MEDS: SODIUM CHLORIDE 0.9% 1,000 ML IV ONE (13:30)
[2025-03-01] MEDS: SODIUM CHLOR 0.9% PF (SALINE LOCK) 10ML VIAL/SYR IV SCH (14:00)
--- NOTE | 2025-03-01 14:03 | DVHHP2 ---
History of Present Illness Reason for Visit: Chest Pain History of Present Illness Jacinta Gomez is a 74-year-old female with past medical history of hypertension, hyperlipidemia, coronary artery disease, and diabetes who came to the hospital for chest pain. Patient states last night she began to not feel well. She checked her BP and it was elevated. She took her BP medication and aspirin, which helped, but then she began experiencing chest pressure, dizziness, and became sweaty prompting her to come to the hospital. At time of assessment her symptoms have improved, she states she still has minimal chest pressure. Cardiovascular: CAD, HTN, hyperipidemia Endocrine: Diabetes Past Surgical History: Cholecystectomy, Hysterectomy, Other (right breast lumpe ctomy) Smoke: No ALCOHOL: none Drugs: None Lives: with Family Domestic Violence: Neg Review of Systems Constitutional: Yes: Chills, Weakness; No: Fever, Sweats, Malaise, Other Eyes: No: Pain, Vision change, Conjunctivae inflammation, Eyelid inflammation, Other, Redness ENT: No: Ear pain, Ear discharge, Nose pain, Nose discharge, Nose congestion, Mouth pain, Mouth swelling, Throat pain, Throat swelling, Other Respiratory: No: Cough, Dry, Shortness of breath, SOB with excertion, Wheezing, Hemoptysis, Pleuritic Pain, Sputum, Wheezing, Other Cardiovascular: Chest Pain (pressure); No: Palpitations, Orthopnea, Paroxysmal Noc. Dyspnea, Edema, Lt Headedness, Other Gastrointestinal: No: Nausea, Vomiting, Abdominal Pain, Diarrhea, Constipation, Melena, Hematochezia, Other Genitourinary: No Dysuria, No Frequency, No Incontinence, No Hematuria, No Retention, No Other Musculoskeletal: No: other, neck pain, shoulder pain, arm pain, back pain, hand pain, leg pain, foot pain Skin: No: Rash, Lesions, Jaundice, Bruising, Other Neurological: Other (dizzy); No: Weakness, Numbness, Incoordination, Change in speech, Confusion, Seizures Allergies: Coded Allergies: NO KNOWN ALLERGIES (Unverified , 07/21/24) Exam Vital Signs Vital Signs Date Time Temp Pulse Resp B/P (MAP) Pulse Ox O2 Delivery O2 Flow Rate FiO2 03/01/25 08:08 43 16 112/42 (65) 98 03/01/25 08:08 Room Air 02/28/25 23:57 97.9 97.9 General Appearance: Alert, Oriented X3, Cooperative, mild distress HEENT: Atraumatic, PERRLA, Other (Mucous membr dry) Respiratory: Clear to auscultation, Normal air movement Cardiovascular: Regular rate, Normal S1, Normal S2 Abdominal: Normal bowel sounds, Soft, No tenderness, No hepatospenomegaly Extremities: No clubbing, No cyanosis, No edema, Normal pulses, No tenderness/swelling Skin: No rashes, No breakdown, No significant lesion Neuro: Normal gait, Normal speech, Strength at 5/5 X4 ext, Normal tone Psych/Mental Status: Mental status NL, Mood NL Labs/Xrays Labs Test 03/01/25 03:43 03/01/25 00:20 03/01/25 00:08 Range/Units Troponin I High Sensitivity 22 </=34 ng/L White Blood Count 9.1 4.4-10.8 10^3/uL Red Blood Count 4.01 4.0-5.20 10^6/uL Hemoglobin 12.5 12.2-16.2 g/dL Hematocrit 35.2 L 36.0-46.0 % Mean Corpuscular Volume 87.7 80.0-100.0 fL Mean Corpuscular Hemoglobin 31.1 28.0-32.0 pg Mean Corpuscular Hemoglobin Concent 35.5 32.0-36.0 g/dL Red Cell Distribution Width 14.3 11.8-14.3 % Platelet Count 249 140-450 10^3/uL Mean Platelet Volume 7.3 6.9-10.8 fL Neutrophils (%) (Auto) 75.2 37.0-80.0 % Lymphocytes (%) (Auto) 12.3 10.0-50.0 % Monocytes (%) (Auto) 10.2 0.0-12.0 % Eosinophils (%) (Auto) 1.8 0.0-7.0 % Basophils (%) (Auto) 0.5 0.0-2.0 % Neutrophils # (Auto) 6.8 1.6-8.6 10 ^3/uL Lymphocytes # (Auto) 1.1 0.4-5.4 10 ^3/uL Monocytes # (Auto) 0.9 0-1.3 10 ^3/uL Eosinophils # (Auto) 0.2 0-0.8 10 ^3/uL Basophils # (Auto) 0 0-0.2 10 ^3/uL Nucleated Red Blood Cells 0.0 % Sodium Level 127 L 136-145 mmol/L Potassium Level 3.7 3.5-5.1 mmol/L Chloride Level 90 L 98-107 mmol/L Carbon Dioxide Level 25 20-31 mmol/L Anion Gap 12 5-15 Blood Urea Nitrogen 13 9-23 mg/dL Creatinine 0.72 0.550-1.02 mg/dL Glomerular Filtration Rate Calc 87 >90 mL/min BUN/Creatinine Ratio 18.1 10.0-20.0 Serum Glucose 151 H 74-106 mg/dL Calcium Level 9.7 8.7-10.4 mg/dL Total Bilirubin 1.3 H 0.2-1.0 mg/dL Aspartate Amino Transferase (AST) 33 13-40 U/L Alanine Aminotransferase (ALT) 28 7-40 U/L Alkaline Phosphatase 81 46-116 U/L B-Type Natriuretic Peptide 141.60 0-100 pg/mL Total Protein 7.3 5.7-8.2 g/dL Albumin 4.5 3.2-4.8 g/dL POC Glucose 155 H 70-106 mg/dl CHEST RADIOGRAPH FINDINGS: Lines and Tubes: None Lungs/Pleura: No focal consolidation, pleural effusion or pneumothorax. Mild infrahilar scarring/atelectasis. Cardiomediastinum: Unremarkable. Other: No acute osseous abnormality. IMPRESSION: 1. No acute cardiopulmonary abnormality. SEPSIS Sepsis Screen Date sepsis recognized/suspect: Feb 28, 2025 Time Sepsis recognized/suspect: 2354 Recent Procedure: No On Antibiotic Therapy: No Respiratory Rate >20: No Heart Rate >90: No Temp<36 C (96.8 F) or >38.3 C: No SBP <90 or MAP <65 mmHG: No New Acute Mental Status Change: No Is the patient on CPAP, BIPAP,: No Physician Orders Admit (03/01/25 13:28) Code Status (03/01/25 13:28) 2 Gm Sodium Diet (03/01/25 Lunch) Sodium Chloride Lock (Saline Lock Ns) (03/01/25 14:00) Hydrocodone-Acet 5/325mg Tab ([place] 32 (03/01/25 13:30) Ondansetron Hcl (Zofran) (03/01/25 13:30) Docusate Sodium Capsule (Colace Capsule) (03/01/25 13:30) Complete Blood Count (03/02/25 04:00) Comprehensive Metabolic Panel (03/02/25 04:00) Condition: Serious (03/01/25 13:28) Acetaminophen Tablet (Tylenol Tablet) (03/01/25 13:30) Nitroglycerin Sublingual (Ntrostat Subli (03/01/25:30) Morphine Sulfate Injection (03/01/25:30) Stat Ekg For Chest Pain (03/01/25:28) Notify Md Of Changes From Base (03/01/25:) Soft Work Wrapper Layer And Examiner For 24 Hours (03/01/25:) Emergency Dysrhythmia Protocol (03/01/25:) Rhythm Strips Once Every Shift (03/01/25:) Oxygen By Nasal Cannula (03/01/25:) Glucose Blood (Accu-Chek Comfort Curve T (03/01/25 17:00) Bedtime Insulin Scale (03/01/25 22:00) Moderate Insulin Ss (03/01/25 17:00) Dextrose 50% Syringe (03/01/25 13:30) NS (03/01/25:) Aspirin Enteric Coated Tablet (Ecotrin E (03/02/25 10:00) Atenolol Tablet (Tenormin Tablet) (03/02/25 10:00) Clopidogrel Bisulfate (Plavix) (03/02/25 10:00) (Nf) Atorvastatin Calcium (03/02/25 10:00) (Nf) Enalapril Maleate (03/02/25 10:00) (Nf) Isosorbide Mononitrate (Isosorbide (03/02/25 10:00) Vital Signs Date Time Temp Pulse Resp B/P (MAP) Pulse Ox O2 Delivery O2 Flow Rate FiO2 03/01/25 08:08 43 16 112/42 (65) 98 03/01/25 08:08 43 18 98 Room Air Assessment/Plan Assessment/Plan Assessment: Hyponatremia, Uncontrolled hypertension, Hyperlipidemia, Coronary artery disease, Diabetes, Plan: Admit to Tele, Consider cardiology consult if symptoms continue, patient is followed by Dr. Abdi, IV hydration, PRN antihypertensives, Accu checks with sliding scale, Home medications reconciled, Plan discussed with: Patient My Orders Orders - CATHERINE JANG Procedure Category Date Status Time Admit ADMIT 03/01/25 Transmitted 13:28 Code Status CODE 03/01/25 Transmitted 13:28 2 Gm Sodium Diet DIET 03/01/25 Transmitted Lunch Sodium Chloride Lock PHA 03/01/25 Transmitted (Saline Lock Ns) 14:00 Hydrocodone-Acet PHA 03/01/25 Transmitted 5/325mg Tab ([place] 13:30 Ondansetron Hcl PHA 03/01/25 Transmitted (Zofran) 13:30 Docusate Sodium PHA 03/01/25 Transmitted Capsule (Colace 13:30 Complete Blood Count LAB 03/02/25 Verified 04:00 Comprehensive LAB 03/02/25 Verified Metabolic Panel 04:00 Condition: Serious USMAN 03/01/25 In Process 13:28 Acetaminophen Tablet [facility] 03/01/25 Transmitted (Tylenol Tablet) 13:30 Nitroglycerin PHA 03/01/25 Transmitted Sublingual (Ntrostat 13:30 Morphine Sulfate PHA 03/01/25 Transmitted Injection 13:30 Stat Ekg For Chest [facility] 03/01/25 In Process Pain 13:28 Notify Of Changes [facility] 03/01/25 In Process From Base 13:28 Soft Work Wrapper Layer And Examiner For [facility] 03/01/25 In Process 24 Hours 13:28 Emergency Dysrhythmia [facility] 03/01/25 In Process Protocol 13:28 Rhythm Strips Once [facility] 03/01/25 In Process Every Shift 13:28 Oxygen By Nasal RT 03/01/25 Transmitted Cannula 13:28 Glucose Blood [facility] 03/01/25 Transmitted (Accu-Chek Comfort 17:00 Bedtime Insulin Scale PHA 03/01/25 Transmitted 22:00 Moderate Insulin Ss PHA 03/01/25 Transmitted 17:00 Dextrose 50% Syringe PHA 03/01/25 Transmitted 13:30 NS PHA 03/01/25 Transmitted 13:30 Aspirin Enteric PHA 03/02/25 Transmitted Coated Tablet 10:00 Atenolol Tablet PHA 03/02/25 Transmitted (Tenormin Tablet) 10:00 Clopidogrel Bisulfate PHA 03/02/25 Transmitted (Plavix) 10:00 (Nf) Atorvastatin PHA 03/02/25 Transmitted Calcium 10:00 (Nf) Enalapril Maleate PHA 03/02/25 Transmitted 10:00 (Nf) Isosorbide PHA 03/02/25 Transmitted Mononitrate 10:00 Date of Service: Mar 01, 2025 Billing Provider: CATHERINE JAGN Common Visit Codes: [id number] INP/OBS CARE (MOD) CATHERINE JANG Mar 01, 2025 14:02
[2025-03-01 14:28] LABS: Potassium 3.6 mmol/L (3.5-5.1)
[2025-03-01 14:29] LABS: Anion Gap 9 (5-15); Carbon Dioxide 26 mmol/L (20-31)
[2025-03-01 14:30] LABS: Calcium 9.4 mg/dL (8.7-10.4); Chloride 94 mmol/L (98-107); Sodium 129 mmol/L (136-145)
[2025-03-01 14:34] LABS: BUN/Creatinine Ratio 13.6 (10.0-20.0); Blood Urea Nitrogen 9 mg/dL (9-23)
[2025-03-01 14:38] LABS: Glucose 224 mg/dL (74-106)
[2025-03-01 18:00] VITALS: O2SAT 96
[2025-03-01 18:42] VITALS: BP 144/87; PULSE 88; RESP 16; TEMP 97.6; O2SAT 97
[2025-03-01] MEDS: ACCU-CHEK COMFORT CURVE STRIP VI SCH (18:42)
[2025-03-01] MEDS: hydrALAZINE HCL 20 MG/ML VL IV SCH (18:42)
[2025-03-01] MEDS: InsuLIN REG 1unit/0.01ml Soln (100units/ml) SC SCH ×2 (18:42→22:07)
[2025-03-01 20:00] VITALS: PULSE 64; PULSE 66; RESP 17; O2SAT 96
[2025-03-01 21:00] VITALS: BP 145/58; PULSE 66; RESP 17; TEMP 98.2; O2SAT 96
[2025-03-01] MEDS: ATORVASTATIN 20 MG TAB PO SCH (22:07)
[2025-03-02] VITALS (8 sets, daily range): BP systolic 114–158; BP diastolic 44–83; PULSE 47–91; RESP 16–18; TEMP 98–98.4; O2SAT 96–100
[2025-03-02 07:25] LABS: Alanine Aminotransferase 27 U/L (7-40); Albumin 4.2 g/dL (3.2-4.8); Alkaline Phosphatase 57 U/L (46-116); Anion Gap 11 (5-15); BUN/Creatinine Ratio 11.1 (10.0-20.0); Calcium 9.1 mg/dL (8.7-10.4); Carbon Dioxide 23 mmol/L (20-31); Chloride 102 mmol/L (98-107); Potassium 3.8 mmol/L (3.5-5.1); Total Protein 6.9 g/dL (5.7-8.2)
[2025-03-02 07:30] LABS: Bilirubin, Total 1.3 mg/dL (0.2-1.0); Blood Urea Nitrogen 6 mg/dL (9-23); Glucose 126 mg/dL (74-106); Sodium 136 mmol/L (136-145)
[2025-03-02 07:38] LABS: Hematocrit 36.2 % (36.0-46.0); Hemoglobin 12.8 g/dL (12.2-16.2); Mean Corpuscular Hemoglobin 31.3 pg (28.0-32.0); Mean Corpuscular Volume 88.3 fL (80.0-100.0); Nucleated Red Blood Cells % 0.0 %
--- NOTE | 2025-03-02 09:33 | ECG ---
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
[2025-03-02] MEDS ORDERED: PATIENTS OWN MEDICATION (Isosorbide Mononitrate (Isosorbide Mononitrate Er) 1 TAB) PO SCH (10:00)
[2025-03-02] MEDS ORDERED: ATENOLOL 25 MG TAB PO SCH (10:00)
[2025-03-02] MEDS ORDERED: PATIENTS OWN MEDICATION (Enalapril Maleate 1 TAB) PO SCH (10:00)
[2025-03-02] MEDS ORDERED: PATIENTS OWN MEDICATION (Atorvastatin Calcium 1 TAB) PO SCH (10:00)
[2025-03-02] MEDS: CLOPIDOGREL BISULFATE 75 MG TAB PO SCH (10:11)
[2025-03-02] MEDS: ASPirin-EC 81 mg tab PO SCH (10:11)
[2025-03-02] MEDS: ISOSORBIDE MONONITRATE ER 60 MG TAB PO SCH (10:13)
[2025-03-02] MEDS: ENALAPRIL MALEATE 10 MG TAB PO SCH (10:22)
--- NOTE | 2025-03-02 11:25 | DVHINCON2 ---
Date Seen: Mar 02, 2025 Referring Physician MD Jesse resident Reason for Consultation 2nd degree type II AV block History of Present Illness This is a pleasant Yoruba-speaking 74-year-old female patient who presents to emergency room with chief complaint of uncontrolled blood pressure. The patient reports she has been having trouble controlling her blood home and has noticed that her systolic blood pressure has been reaching as high as the 180s. On the day of emergency room arrival she reports that she began to feel clammy which prompted her to come to the emergency room. Initial twelve lead electrocardiogram reveals normal sinus rhythm with first degree conduction delay and right bundle branch block. Initial troponin level of 23ng/L with flat trend thereafter. Significant past medical history includes severe 3-vessel CAD without surgical intervention, hypertension, dyslipidemia, type 2 diabetes mellitus, breast cancer status post left breast lumpectomy and radiation, and obesity. The patient sees prior authorization nurse in the outpatient setting. Of note, the patient underwent a coronary angiogram with left heart catheterization at this facility on 07/26/2024 which revealed severe three-vessel coronary artery disease and consideration for CABG evaluation was recommended. The patie nt never underwent CABG surgery. It is also worth mentioning that patient is prescribed atenolol and took dose of atenolol on the day of emergency room arrival. Past Medical History Past medical history reviewed. No other significant than mentioned above. Past Surgical History Left breast lumpectomy Cholecystectomy Hysterectomy Family History: Patient reports no known family medical history. Family History Family history reviewed. Social History Denies the use of tobacco, alcohol or illicit drugs. Allergies: Coded Allergies: NO KNOWN ALLERGIES (Unverified , 07/21/24) Home Meds Reported Medications Aspirin (Aspir-Low) 81 Mg Tab, 81 MG PO DAILY for CAD, MG 07/21/24 Isosorbide Mononitrate (Isosorbide Mononitrate Er) 30 Mg Tab, 1 TAB PO DAILY for HTN, #30 TAB 5 Refills 07/21/24 Enalapril Maleate (Enalapril Maleate) 20 Mg Tab, 1 TAB PO DAILY for HTN, #90 TAB 1 Refill 07/21/24 Clopidogrel Bisulfate (CLOPIDOGREL) 75 Mg Tab, 1 TAB PO DAILY for S/P CARDIAC STENT 12/18/23 Metformin Hydrochloride (Metformin Hcl) 1,000 Mg Tab, 1 TAB PO BID for DIABETES 12/18/23 Atorvastatin Calcium (ATORVASTATIN CALCIUM) 40 Mg Tab, 1 TAB PO DAILY for HIGH CHOLESTEROL 12/18/23 Atenolol (Atenolol) 25 Mg Tab, 1 TAB PO DAILY for HTN 12/18/23 Tramadol Hcl (Tramadol Hcl) 50 Mg Tab, 1 TAB PO DAILYPRN PRN for PAIN 12/18/23 Home Meds Home medications reviewed. Current Medications Current Medications Medications (Trade) Dose Ordered Sig/Bailey Route PRN Reason Start Time Stop Time Status Last Admin Sodium Chloride (Saline Lock Ns) 10 ml Q8HR IV 03/01/25 14:00 03/02/25 05:59 Acetaminophen/ Hydrocodone Bitart ([place] 5/325MG Tab) 1 tab Q4HP PRN PO MODERATE PAIN (4-6 PAIN SCALE) 03/01/25 13:30 Ondansetron HCl (Zofran) 4 mg Q4HP PRN IV NAUSEA / VOMITING 03/01/25 13:30 Docusate Sodium (Colace Capsule) 100 mg BIDPRN PRN PO FOR CONSTIPATION 03/01/25 13:30 Acetaminophen (Tylenol Tablet) 650 mg Q6HP PRN PO PAIN SCALE 1-3 OR TEMP>100.4 03/01/25 13:30 Nitroglycerin (Ntrostat Sublingual) 0.4 mg Q5MINP PRN SL FOR CHEST PAIN 03/01/25 13:30 Morphine Sulfate 2 mg Q30M PRN IV FOR CHEST PAIN 03/01/25 13:30 Diagnostic Test (Pha) (Accu-Chek Comfort Curve T) 1 strip ACHS 03/01/25 17:00 03/02/25 05:59 Insulin Human Regular (InsuLIN R) HS SC 03/01/25 22:00 03/01/25 22:07 Insulin Human Regular (InsuLIN R) AC SC 03/01/25 17:00 Dextrose 50 ml UD PRN IV Blood Sugar LESS THAN 60 03/01/25 13:30 Aspirin (Ecotrin Enteric Coated Tablet) 81 mg DAILY PO 03/02/25 10:00 03/02/25 10:11 Atenolol (Tenormin Tablet) 25 mg DAILY PO 03/02/25 10:00 03/02/25 06:23 DC Clopidogrel Bisulfate (Plavix) 75 mg DAILY PO 03/02/25 10:00 03/02/25 10:11 Patient Own Medication 1 tab DAILY PO 03/02/25 10:00 UNV Patient Own Medication 1 tab DAILY PO 03/02/25 10:00 Cancel Patient Own Medication 1 tab DAILY PO 03/02/25 10:00 UNV Atorvastatin Calcium (Lipitor) 40 mg HS PO 03/01/25 22:00 03/01/25 22:07 Isosorbide Mononitrate (Imdur Er Tablet) 30 mg DAILY PO 03/02/25 10:00 03/02/25 10:13 Enalapril Maleate (Vasotec Tablet) 20 mg DAILY PO 03/02/25 10:00 03/02/25 10:22 Hydralazine HCl (Apresoline Injection) 10 mg Q6HR IV 03/01/25 18:00 03/02/25 05:52 Review of Systems Constitutional: No symptom reported Ears, Nose, & Throat: No symptom reported Eyes: No symptom reported Neurological: No symptoms reported Pulmonary/Respiratory: No symptoms reported Cardiovascular: No symptom reported Gastrointestinal: No symptom reported Genitourinary: No symptom reported Musculoskeletal: No symptom reported Skin: Clammy skin Psychiatric: No symptom reported Endocrine: No symptom reported Hematologic/Lymphatic: No symptom reported Vital Signs Vital Signs Date Time Temp Pulse Resp B/P (MAP) Pulse Ox O2 Delivery O2 Flow Rate FiO2 03/02/25 10:22 158/83 03/02/25 09:07 98.2 78 18 98 98.2 03/01/25 20:00 Room Air* 0 21 Physical Exam General Appearance: Cooperative. Well-developed. Well-nourished. No acute distress. Pulmonary/Respiratory: Clear, bilateral breaths sounds. Cardiovascular/Chest: Regular rate and rhythm. Peripheral Pulses: 2+ Radial (R). 2+ Radial (L). 2+ Pedal (R). 2+ Pedal (L) Abdominal Exam: Normal bowel sounds. Ankle Exam: Negative ankle edema Lower extremities: Negative lower extremity edema Neuro/Mental Status: A/OX4, coherent. Thoughts/Psych: Normal thought pattern. Appropriate mood and affect. Good judgment and insight. Appearance: No acute distress. Skin Exam: Normal inspection. Normal color. Warm and dry. Labs/Diagnostic Data Labs Test 03/02/25 06:24 03/02/25 05:58 03/01/25 03:43 03/01/25 00:20 Range/Units White Blood Count 4.6 # 4.4-10.8 10^3/uL Red Blood Count 4.09 4.0-5.20 10^6/uL Hemoglobin 12.8 12.2-16.2 g/dL Hematocrit 36.2 36.0-46.0 % Mean Corpuscular Volume 88.3 80.0-100.0 fL Mean Corpuscular Hemoglobin 31.3 28.0-32.0 pg Mean Corpuscular Hemoglobin Concent 35.5 32.0-36.0 g/dL Red Cell Distribution Width 14.7 H 11.8-14.3 % Platelet Count 237 140-450 10^3/uL Mean Platelet Volume 7.5 6.9-10.8 fL Neutrophils (%) (Auto) 63.8 37.0-80.0 % Lymphocytes (%) (Auto) 19.3 10.0-50.0 % Monocytes (%) (Auto) 13.2 H 0.0-12.0 % Eosinophils (%) (Auto) 2.8 0.0-7.0 % Basophils (%) (Auto) 0.9 0.0-2.0 % Neutrophils # (Auto) 3.0 1.6-8.6 10 ^3/uL Lymphocytes # (Auto) 0.9 0.4-5.4 10 ^3/uL Monocytes # (Auto) 0.6 0-1.3 10 ^3/uL Eosinophils # (Auto) 0.1 0-0.8 10 ^3/uL Basophils # (Auto) 0 0-0.2 10 ^3/uL Nucleated Red Blood Cells 0.0 % Sodium Level 136 # 136-145 mmol/L Potassium Level 3.8 3.5-5.1 mmol/L Chloride Level 102 98-107 mmol/L Carbon Dioxide Level 23 20-31 mmol/L Anion Gap 11 5-15 Blood Urea Nitrogen 6 L 9-23 mg/dL Creatinine 0.54 L 0.550-1.02 mg/dL Glomerular Filtration Rate Calc 96 >90 mL/min BUN/Creatinine Ratio 11.1 10.0-20.0 Serum Glucose 126 H 74-106 mg/dL Calcium Level 9.1 8.7-10.4 mg/dL Total Bilirubin 1.3 H 0.2-1.0 mg/dL Aspartate Amino Transferase (AST) 31 13-40 U/L Alanine Aminotransferase (ALT) 27 7-40 U/L Alkaline Phosphatase 57 46-116 U/L Total Protein 6.9 5.7-8.2 g/dL Albumin 4.2 3.2-4.8 g/dL POC Glucose 121 H 70-106 mg/dl Troponin I High Sensitivity 22 </=34 ng/L B-Type Natriuretic Peptide 141.60 0-100 pg/mL Assessment Intermittent second degree type II atrioventricular block Sinus bradycardia Rule out structural heart disease Severe triple-vessel coronary artery disease (takes Plavix and aspirin) Hypertension Dyslipidemia Type 2 diabetes mellitus History of breast cancer status post lumpectomy and radiation Obesity Plan/Recommendation We will continue with the following plan/recommendations (Dr. Schneider): * Transthoracic echocardiogram to evaluate cardiac function * IV glucagon * Avoid AV taras blocking agents * Blood pressure control * Antiplatelet therapy and lipid-lowering agent * Close Cardiac surveillance; notify cardiology team immediately for any ECG changes or if patient is sustaining bradycardia * Consider transcutaneous pacing if needed * Upgrade to step-down unit Case discussed with . Further recommendations per clinical course and progression. Thank you for allowing us to care for this patient. Please call with any questions or concerns. Critical care time spent: 44 minutes This medical document was created using an electronic medical record system with voice recognition software and computerized dictation system. Although this document has been carefully reviewed, there might still be some phonetic and typographical errors. Occasional wrong-word or ``sound-alike substitutions may have occurred due to the inherent limitations of voice recognition software. These areas are purely typographical due to imperfections of the software programs and do not reflect any compromise in the patient's medical care. Please read the chart carefully and recognize, using context, where these substitutions have occurred. Plan discussed with: Patient NYHA Physical activity limitations: NA Date of Service: Mar 02, 2025 Billing Provider: JG ELLIOTT Cardiology Common Codes: [id number] INP/OBS CARE (High) Cardiology Consultation Codes: [id number] CONSULT <45MIN JG ELLIOTT Mar 02, 2025 11:25
--- NOTE | 2025-03-02 11:35 | DVHPN2 ---
Subjective The patient is seen and examined at bedside. The patient feel dizzy but no other complaint. Son at bedside. Reviewed: Care Plan, H&P, Labs, Medications, Previous Orders, Radiology Changes from previous H/P or p: No Changes Eyes: No Pain, No Vision change, No Conjunctivae inflammation, No Eyelid inflammation, No Other, No Redness ENT: No Ear pain, No Ear discharge, No Nose pain, No Nose discharge, No Nose congestion, No Mouth pain, No Mouth swelling, No Throat pain, No Throat swelling, No Other Cardiovascular: Chest Pain (pressure); No Palpitations, No Orthopnea, No Paroxysmal Noc. Dyspnea, No Edema, No Lt Headedness, No Other Respiratory: No Cough, No Dry, No Shortness of breath, No SOB with excertion, No Wheezing, No Hemoptysis, No Pleuritic Pain, No Sputum, No Other Gastrointestinal: No Nausea, No Vomiting, No Abdominal Pain, No Diarrhea, No Constipation, No Melena, No Hematochezia, No Other Genitourinary: No Dysuria, No Frequency, No Incontinence, No Hematuria, No Retention, No Other Musculoskeletal: No other, No neck pain, No shoulder pain, No arm pain, No back pain, No hand pain, No leg pain, No foot pain Skin: No Rash, No Lesions, No Jaundice, No Bruising, No Other Objective Vitals Vital Signs Date Time Temp Pulse Resp B/P (MAP) Pulse Ox O2 Delivery O2 Flow Rate FiO2 03/02/25 10:22 158/83 03/02/25 09:07 98.2 78 18 98 98.2 03/01/25 20:00 Room Air* 0 21 Intake/Output Intake and Output 03/02/25 07:00 Intake Total 1100 ml Balance 1100 ml Intake Oral 1100 ml # Voids 2 General Appearance: Alert, Oriented X3, Cooperative, No acute distress HEENT: Atraumatic, PERRLA, EOMI, Mucous membr. moist/pink Neck: Supple Lungs: Clear to auscultation, Normal air movement Cardiovascular: Regular rate, Normal S1, Normal S2, No murmurs, Gallops, Rubs Abdomen: Normal bowel sounds, Soft, No tenderness Neuro: Cranial nerves 3-12 NL Psych/Mental Status: Mental status NL Medications Current Medications Medications Dose Ordered Sig/Bailey Route Start Time Stop Time Status Last Admin Dose Admin Sodium Chloride 10 ml Q8HR IV 9/16/25 14:00 03/02/25 05:59 10 ML Acetaminophen/ Hydrocodone Bitart 1 tab Q4HP PRN PO 03/01/25 13:30 Ondansetron HCl 4 mg Q4HP PRN IV 03/01/25 13:30 Docusate Sodium 100 mg BIDPRN PRN PO 03/01/25 13:30 Acetaminophen 650 mg Q6HP PRN PO 03/01/25 13:30 Nitroglycerin 0.4 mg Q5MINP PRN SL 03/01/25 13:30 Morphine Sulfate 2 mg Q30M PRN IV 03/01/25 13:30 Diagnostic Test (Pha) 1 strip ACHS 03/01/25 17:00 03/02/25 05:59 1 STRIP Insulin Human Regular HS SC 03/01/25 22:00 03/01/25 22:07 4 UNITS Insulin Human Regular AC SC 03/01/25 17:00 Dextrose 50 ml UD PRN IV 03/01/25 13:30 Aspirin 81 mg DAILY PO 03/02/25 10:00 03/02/25 10:11 81 MG Clopidogrel Bisulfate 75 mg DAILY PO 03/02/25 10:00 03/02/25 10:11 75 MG Patient Own Medication 1 tab DAILY PO 03/02/25 10:00 UNV Patient Own Medication 1 tab DAILY PO 03/02/25 10:00 Cancel Patient Own Medication 1 tab DAILY PO 03/02/25 10:00 UNV Atorvastatin Calcium 40 mg HS PO 03/01/25 22:00 03/01/25 22:07 40 MG Isosorbide Mononitrate 30 mg DAILY PO 03/02/25 10:00 03/02/25 10:13 30 MG Enalapril Maleate 20 mg DAILY PO 03/02/25 10:00 03/02/25 10:22 20 MG Hydralazine HCl 10 mg Q6HR IV 03/01/25 18:00 03/02/25 05:52 10 MG Laboratory Results Laboratory Tests 03/02/25 06:24 Chemistry Test 03/01/25 14:08 03/02/25 06:24 Calcium Level 9.4 mg/dL (8.7-10.4) 9.1 mg/dL (8.7-10.4) Albumin 4.2 g/dL (3.2-4.8) Magnesium Level Pending Total Protein 6.9 g/dL (5.7-8.2) Lipid panel Test 03/02/25 06:24 Cholesterol Level Pending HDL Cholesterol Pending Triglycerides Level Pending LFT Test 03/02/25 06:24 Alanine Aminotransferase (ALT) 27 U/L (7-40) Alkaline Phosphatase 57 U/L (46-116) Aspartate Amino Transferase (AST) 31 U/L (13-40) Total Bilirubin 1.3 mg/dL (0.2-1.0) H HgA1c, TSH Test 03/02/25 06:24 Hemoglobin A1c Pending Thyroid Stimulating Hormone (TSH) Pending Labs and/or images reviewed: Labs reviewed by me Assessment/Plan Assessment/Plan Assessment: Hyponatremia, Uncontrolled hypertension, Hyperlipidemia, Coronary artery disease, Diabetes, Dizziness AV block type 2 Continuing current management Waiting for mdm sr to see the patient. Replace electrolytes. Continuing sliding scale insulin. Continuing hypertensive medication. This medical document was created using an electronic medical record system with [employer] direct computerized dictation system. Although this document has been carefully reviewed, there may still be some phonetic and typographical errors. These areas are purely typographical due to imperfections of the software programs, and do not reflect any compromise in the patient's medical care. Plan discussed with: Patient, Son Date of Service: Mar 02, 2025 Billing Provider: ANGELO HARLEY MD Common Visit Codes: [id number] INP/OBS CARE(HIGH) ANGELO HARLEY MD Mar 02, 2025 11:35
[2025-03-02 11:43] LABS: Magnesium 1.7 mg/dL (1.6-2.6); Triglycerides 126.0 mg/dL (< 150)
[2025-03-02 11:44] LABS: HDL Cholesterol 47.0 mg/dL (40-59)
[2025-03-02 11:45] LABS: Cholesterol 114.0 mg/dL (< 200)
[2025-03-02] MEDS: GLUCAGON EMERG KIT 1mg/1ml IV ONE ×2 (12:29→19:41)
[2025-03-03] VITALS (8 sets, daily range): BP systolic 113–160; BP diastolic 57–92; PULSE 41–84; RESP 16–18; TEMP 96.8–98.6; O2SAT 95–98
[2025-03-03 09:48] LABS: Hematocrit 36.4 % (36.0-46.0); Hemoglobin 12.7 g/dL (12.2-16.2); Mean Corpuscular Hemoglobin 31.2 pg (28.0-32.0); Mean Corpuscular Volume 89.2 fL (80.0-100.0); Nucleated Red Blood Cells % 0.0 %
[2025-03-03 09:57] LABS: Potassium 3.6 mmol/L (3.5-5.1)
[2025-03-03 09:58] LABS: Anion Gap 11 (5-15); Calcium 9.0 mg/dL (8.7-10.4); Carbon Dioxide 21 mmol/L (20-31)
[2025-03-03 10:03] LABS: BUN/Creatinine Ratio 15.5 (10.0-20.0); Blood Urea Nitrogen 11 mg/dL (9-23)
--- NOTE | 2025-03-03 10:08 | ECG ---
[facility] Test Date: 2025-03-01 Test Time: 00:04:55 Pat Name: LAURITA HAAS Department[facility] Patient [facility]: [id number] Room: [facility] B Gender: F [employer] Fore[employer]: QUEENIE : 1950 Requested By: AMAYA SHERIDAN Order Number: [id number] Reading MD: Garcia Schneider Measurements Intervals [place] Rate: 63 P: 73 PA: 243 QRS: 62 QRSD: 144 T: 60 QT: 467 QTc: 479 Interpretive Statements Sinus rhythm Prolonged PA interval Probable left atrial enlargement Right bundle branch block Inferior infarct, old ST depr, consider ischemia, anterolateral lds Electronically Signed On 03-03-2025 15:47:33 PDT by Garcia Schneider Please click the below link to view image of tracing.
[2025-03-03 10:11] LABS: Chloride 97 mmol/L (98-107); Glucose 244 mg/dL (74-106); Sodium 129 mmol/L (136-145)
--- NOTE | 2025-03-03 12:36 | DVHPN2 ---
Subjective The patient is seen and examined at bedside. The patient feel dizzy but no other complaint. Crying because she did not have her lunch right. Reviewed: Care Plan, H&P, Labs, Medications, Previous Orders, Radiology Changes from previous H/P or p: No Changes Eyes: No Pain, No Vision change, No Conjunctivae inflammation, No Eyelid inflammation, No Other, No Redness ENT: No Ear pain, No Ear discharge, No Nose pain, No Nose discharge, No Nose congestion, No Mouth pain, No Mouth swelling, No Throat pain, No Throat swelling, No Other Cardiovascular: Chest Pain (pressure); No Palpitations, No Orthopnea, No Paroxysmal Noc. Dyspnea, No Edema, No Lt Headedness, No Other Respiratory: No Cough, No Dry, No Shortness of breath, No SOB with excertion, No Wheezing, No Hemoptysis, No Pleuritic Pain, No Sputum, No Other Gastrointestinal: No Nausea, No Vomiting, No Abdominal Pain, No Diarrhea, No Constipation, No Melena, No Hematochezia, No Other Genitourinary: No Dysuria, No Frequency, No Incontinence, No Hematuria, No Retention, No Other Musculoskeletal: No other, No neck pain, No shoulder pain, No arm pain, No back pain, No hand pain, No leg pain, No foot pain Skin: No Rash, No Lesions, No Jaundice, No Bruising, No Other Objective Vitals Vital Signs Date Time Temp Pulse Resp B/P (MAP) Pulse Ox O2 Delivery O2 Flow Rate FiO2 03/03/25 11:42 155/77 03/03/25 09:00 96.8 43 18 98 96.8 03/03/25 08:00 Room Air* 0 21 Intake/Output Intake and Output 03/03/25 06:59 Intake Total 1490 ml Balance 1490 ml Intake Oral 1490 ml # Voids 3 General Appearance: Alert, Oriented X3, Cooperative, No acute distress HEENT: Atraumatic, PERRLA, EOMI, Mucous membr. moist/pink Neck: Supple Lungs: Clear to auscultation, Normal air movement Cardiovascular: Regular rate, Normal S1, Normal S2, No murmurs, Gallops, Rubs Abdomen: Normal bowel sounds, Soft, No tenderness Neuro: Cranial nerves 3-12 NL Psych/Mental Status: Mental status NL Medications Current Medications Medications Dose Ordered Sig/Bailey Route Start Time Stop Time Status Last Admin Dose Admin Sodium Chloride 10 ml Q8HR IV 03/01/25 14:00 03/03/25 05:44 10 ML Acetaminophen/ Hydrocodone Bitart 1 tab Q4HP PRN PO 03/01/25 13:30 Ondansetron HCl 4 mg Q4HP PRN IV 03/01/25 13:30 Docusate Sodium 100 mg BIDPRN PRN PO 03/01/25 13:30 Acetaminophen 650 mg Q6HP PRN PO 03/01/25 13:30 Nitroglycerin 0.4 mg Q5MINP PRN SL 03/01/25 13:30 Morphine Sulfate 2 mg Q30M PRN IV 03/01/25 13:30 Diagnostic Test (Pha) 1 strip ACHS 03/01/25 17:00 03/03/25 11:42 1 STRIP Insulin Human Regular HS SC 03/01/25 22:00 03/02/25 22:16 4 UNITS Insulin Human Regular AC SC 03/01/25 17:00 03/03/25 12:05 3 UNITS Dextrose 50 ml UD PRN IV 03/01/25 13:30 Aspirin 81 mg DAILY PO 03/02/25 10:00 03/03/25 09:15 81 MG Clopidogrel Bisulfate 75 mg DAILY PO 03/02/25 10:00 03/03/25 09:12 75 MG Patient Own Medication 1 tab DAILY PO 03/02/25 10:00 UNV Patient Own Medication 1 tab DAILY PO 03/02/25 10:00 Cancel Patient Own Medication 1 tab DAILY PO 03/02/25 10:00 UNV Atorvastatin Calcium 40 mg HS PO 03/01/25 22:00 03/02/25 22:07 40 MG Isosorbide Mononitrate 30 mg DAILY PO 03/02/25 10:00 03/03/25 09:15 30 MG Enalapril Maleate 20 mg DAILY PO 03/02/25 10:00 03/03/25 09:13 20 MG Hydralazine HCl 10 mg Q6HR IV 03/01/25 18:00 03/03/25 11:42 10 MG Laboratory Results Laboratory Tests 03/03/25 09:23 Chemistry Test 03/03/25 09:23 Calcium Level 9.0 mg/dL (8.7-10.4) Microbiology Microbiology Date/Time Source Procedure Growth Status 03/01/25 22:14 Nose MRSA Screen - Final Complete Labs and/or images reviewed: Labs reviewed by me Assessment/Plan Assessment/Plan Assessment: Hyponatremia, Uncontrolled hypertension, Hyperlipidemia, Coronary artery disease, Diabetes, Dizziness AV block type 2 Continuing current management Waiting for hand collator to see the patient. Replace electrolytes. Continuing sliding scale insulin. Continuing hypertensive medication. Per cardiology: Upgrade to step down Will ask the kitchen to bring her the right food. This medical document was created using an electronic medical record system with [employer] direct computerized dictation system. Although this document has been carefully reviewed, there may still be some phonetic and typographical errors. These areas are purely typographical due to imperfections of the software programs, and do not reflect any compromise in the patient's medical care. Plan discussed with: Patient, Other (Rn) My Orders Orders - ANGELO HARLEY MD Procedure Category Date Status Time Complete Blood Count LAB 03/04/25 Verified 05:00 Complete Blood Count LAB 03/05/25 Verified 05:00 Complete Blood Count LAB 03/06/25 Verified 05:00 Complete Blood Count LAB 03/07/25 Verified 05:00 Basic Metabolic Panel LAB 03/04/25 Verified 05:00 Basic Metabolic Panel LAB 03/05/25 Verified 05:00 Basic Metabolic Panel LAB 03/06/25 Verified 05:00 Basic Metabolic Panel LAB 03/07/25 Verified 05:00 Date of Service: Mar 03, 2025 Billing Provider: ANGELO HARLEY MD Common Visit Codes: [id number] INP/OBS CARE(HIGH) ANGELO HARLEY MD Mar 03, 2025 12:36
--- NOTE | 2025-03-03 13:13 | DVHSR ---
APPROVED REPORT EXAM: LIMITED Two-dimensional and M-mode echocardiogram with Doppler and color Doppler. Blood Pressure: 144/61 mmHg INDICATION Uncontrolled HTN RISK FACTORS Height: 4' 10", Weight: 128 DIMENSIONS LVDd4.9 (3.8-5.7cm)LA (2D)3.2 (1.9-4.0cm)Aortic Root3.0 (2.0-3.7cm) LVDs3.6 (2.5-4.0cm)LA (MM) (1.9-4.0cm)Aortic Cusp Exc1.5 (1.5-2.0cm) EF (%) 55.0 (55-70%)Rt. Atrium3.2 (1.9-4.0cm)Asc. Aorta cm IVSd1.2 (0.7-1.1cm)RV (D) (1.8-2.4cm) PWd1.2 (0.7-1.1cm) Mitral Valve MitralMitral Stenosis E wave0.70m/sMV Mean GR.mmHg A wave1.10m/sMV Peak GR.mmHg E/A ratio0.62D MVAcm2 Aortic Valve Aortic ValveAortic Stenosis V11.20m/Cassandra Mean GR.5mmHg V21.60m/Cassandra Peak GR.11mmHg LVOT Diameter2.2 (1.8-2.4cm)Doppler AVA2.85cm2 Pulmonic Valve V21.00m/s Tricuspid Valve TR Velocity2.34m/s [id number] Other Information Quality : Technically LimitedRhythm : Technically limited study due to body habitus. Conclusion Sinus rhythm difficult acoustic windows Concentric LVH Normal chamber sizes otherwise noted. Valves appear to be structurally normal. EF of 55-60% with normal RV function. Dopplers unremarkable. Mild TR. No pericardial effusion masses or vegetations discernible.
--- NOTE | 2025-03-03 16:51 | DVHPN2 ---
Consult Progress Note Subjective Other Systems: Patient still going into intermittent second-degree type 2 atrioventricular blocks on nurse monitoring Objective vital signs Vital Sign Date Time Temp Pulse Resp B/P (MAP) Pulse Ox O2 Delivery O2 Flow Rate FiO2 03/03/25 16:30 98.6 82 18 146/80 (102) 97 98.6 03/03/25 08:00 Room Air* 0 21 Total Intake and Output 03/02/25 03/02/25 03/03/25 15:00 23:00 07:00 Intake Total 450 ml 740 ml 300 ml Balance 450 ml 740 ml 300 ml medications Current Medications Medications Dose Ordered Sig/Bailey Route Start Time Stop Time Status Last Admin Dose Admin Sodium Chloride 10 ml Q8HR IV 03/01/25 14:00 03/03/25 14:00 10 ML Acetaminophen/ Hydrocodone Bitart 1 tab Q4HP PRN PO 03/01/25 13:30 Ondansetron HCl 4 mg Q4HP PRN IV 03/01/25 13:30 Docusate Sodium 100 mg BIDPRN PRN PO 03/01/25 13:30 Acetaminophen 650 mg Q6HP PRN PO 03/01/25 13:30 Nitroglycerin 0.4 mg Q5MINP PRN SL 03/01/25 13:30 Morphine Sulfate 2 mg Q30M PRN IV 03/01/25 13:30 Diagnostic Test (Pha) 1 strip ACHS 03/01/25 17:00 03/03/25 11:42 1 STRIP Insulin Human Regular HS SC 03/01/25 22:00 03/02/25 22:16 4 UNITS Insulin Human Regular AC SC 03/01/25 17:00 03/03/25 12:05 3 UNITS Dextrose 50 ml UD PRN IV 03/01/25 13:30 Aspirin 81 mg DAILY PO 03/02/25 10:00 03/03/25 09:15 81 MG Clopidogrel Bisulfate 75 mg DAILY PO 03/02/25 10:00 03/03/25 09:12 75 MG Patient Own Medication 1 tab DAILY PO 03/02/25 10:00 UNV Patient Own Medication 1 tab DAILY PO 03/02/25 10:00 Cancel Patient Own Medication 1 tab DAILY PO 03/02/25 10:00 UNV Atorvastatin Calcium 40 mg HS PO 03/01/25 22:00 03/02/25 22:07 40 MG Isosorbide Mononitrate 30 mg DAILY PO 03/02/25 10:00 03/03/25 09:15 30 MG Enalapril Maleate 20 mg DAILY PO 03/02/25 10:00 03/03/25 09:13 20 MG Hydralazine HCl 10 mg Q6HR IV 03/01/25 18:00 03/03/25 11:42 10 MG Examination: GENERAL:Normal, LUNGS:Normal, CVS:Abnormal (Intermittent second- degree type 2 atrioventricular blocks), NEURO:Normal laboratory and microbiology Laboratory Tests 03/03/25 09:23 Test 03/03/25 09:23 Range/Units Serum Glucose 244 H 74-106 mg/dL Problem List/Assessment/Plan Problem List/Assessment/Plan Intermittent second degree type II atrioventricular block Severe triple-vessel coronary artery disease (takes Plavix and aspirin) Hypertension Dyslipidemia Type 2 diabetes mellitus History of breast cancer status post lumpectomy and radiation Obesity Plan/Recommendations (Dr. Schneider): * Transthoracic echocardiogram reveals EF 55-60% * Avoid AV taras blocking agents * Blood pressure control * Antiplatelet therapy and lipid-lowering agent * Close Cardiac surveillance; notify cardiology team immediately for any ECG changes or if patient is sustaining bradycardia * Consider transcutaneous pacing if needed * Permanent pacemaker implantation Case discussed with . The patient has been off of beta-blockade therapy since admission and was given glucagon IV x2. Patient noted to have frequent intermittent second-degree type 2 atrioventricular blocks on nurse monitoring. Given high-degree atrioventricular block without secondary cause, the patient qualifies for permanent pacemaker implantation. Plan discussed with the patient full detail including risks and benefits. Patient and her daughter at bedside verbalized understanding. Patient agrees to undergo procedure. We will schedule the patient on 03/04/2025 with . Thank you for allowing us to care for this patient. Please call with any questions or concerns. This medical document was created using an electronic medical record system with voice recognition software and computerized dictation system. Although this document has been carefully reviewed, there might still be some phonetic and typographical errors. Occasional wrong-word or ``sound-alike substitutions may have occurred due to the inherent limitations of voice recognition software. These areas are purely typographical due to imperfections of the software programs and do not reflect any compromise in the patient's medical care. Please read the chart carefully and recognize, using context, where these substitutions have occurred. Plan discussed with: Patient Date of Service: Mar 03, 2025 Billing Provider: JG ELLIOTT Common Visit Codes: [id number] INP/OBS CARE(HIGH) JG ELLIOTT Mar 03, 2025 16:51
[2025-03-03 23:31] LABS: INR 1.06 (0.9-1.15); Partial Thromboplastin Time 30.2 SEC (24.5-34.5); Prothrombin Time 11.2 sec (9.3-11.8)
[2025-03-04] VITALS (12 sets, daily range): BP systolic 116–147; BP diastolic 57–75; PULSE 69–100; RESP 12–18; TEMP 97–97.8; O2SAT 95–98
[2025-03-04 06:34] LABS: Hematocrit 36.1 % (36.0-46.0); Hemoglobin 12.6 g/dL (12.2-16.2); Mean Corpuscular Hemoglobin 31.0 pg (28.0-32.0); Mean Corpuscular Volume 88.7 fL (80.0-100.0); Nucleated Red Blood Cells % 0.0 %
[2025-03-04 06:42] LABS: INR 1.05 (0.9-1.15); Partial Thromboplastin Time 29.5 SEC (24.5-34.5); Prothrombin Time 11.1 sec (9.3-11.8)
[2025-03-04 06:52] LABS: Calcium 9.7 mg/dL (8.7-10.4); Chloride 103 mmol/L (98-107); Potassium 3.7 mmol/L (3.5-5.1); Sodium 136 mmol/L (136-145)
[2025-03-04 06:53] LABS: Anion Gap 12 (5-15); Carbon Dioxide 21 mmol/L (20-31)
[2025-03-04 06:59] LABS: BUN/Creatinine Ratio 12.7 (10.0-20.0)
[2025-03-04 07:02] LABS: Blood Urea Nitrogen 8 mg/dL (9-23); Glucose 156 mg/dL (74-106)
--- NOTE | 2025-03-04 12:11 | DVHPN2 ---
Subjective The patient is seen and examined at bedside. The patient feel dizzy but no other complaint. Pacemaker placement today. Reviewed: Care Plan, H&P, Labs, Medications, Previous Orders, Radiology Changes from previous H/P or p: No Changes Eyes: No Pain, No Vision change, No Conjunctivae inflammation, No Eyelid inflammation, No Other, No Redness ENT: No Ear pain, No Ear discharge, No Nose pain, No Nose discharge, No Nose congestion, No Mouth pain, No Mouth swelling, No Throat pain, No Throat swelling, No Other Cardiovascular: Chest Pain (pressure); No Palpitations, No Orthopnea, No Paroxysmal Noc. Dyspnea, No Edema, No Lt Headedness, No Other Respiratory: No Cough, No Dry, No Shortness of breath, No SOB with excertion, No Wheezing, No Hemoptysis, No Pleuritic Pain, No Sputum, No Other Gastrointestinal: No Nausea, No Vomiting, No Abdominal Pain, No Diarrhea, No Constipation, No Melena, No Hematochezia, No Other Genitourinary: No Dysuria, No Frequency, No Incontinence, No Hematuria, No Retention, No Other Musculoskeletal: No other, No neck pain, No shoulder pain, No arm pain, No back pain, No hand pain, No leg pain, No foot pain Skin: No Rash, No Lesions, No Jaundice, No Bruising, No Other Objective Vitals Vital Signs Date Time Temp Pulse Resp B/P (MAP) Pulse Ox O2 Delivery O2 Flow Rate FiO2 03/04/25 09:27 136/60 03/04/25 08:30 97.8 78 17 98 97.8 03/03/25 20:00 Room Air* 0 21 Intake/Output Intake and Output 03/04/25 06:59 Intake Total 2270 ml Balance 2270 ml Intake Oral 2270 ml # Voids 9 General Appearance: Alert, Oriented X3, Cooperative, No acute distress HEENT: Atraumatic, PERRLA, EOMI, Mucous membr. moist/pink Neck: Supple Lungs: Clear to auscultation, Normal air movement Cardiovascular: Regular rate, Normal S1, Normal S2, No murmurs, Gallops, Rubs Abdomen: Normal bowel sounds, Soft, No tenderness Neuro: Cranial nerves 3-12 NL Psych/Mental Status: Mental status NL Medications Current Medications Medications Dose Ordered Sig/Bailey Route Start Time Stop Time Status Last Admin Dose Admin Sodium Chloride 10 ml Q8HR IV 03/01/25 14:00 03/04/25 06:23 10 ML Acetaminophen/ Hydrocodone Bitart 1 tab Q4HP PRN PO 03/01/25 13:30 Ondansetron HCl 4 mg Q4HP PRN IV 03/01/25 13:30 Docusate Sodium 100 mg BIDPRN PRN PO 03/01/25 13:30 Acetaminophen 650 mg Q6HP PRN PO 03/01/25 13:30 Nitroglycerin 0.4 mg Q5MINP PRN SL 03/01/25 13:30 Morphine Sulfate 2 mg Q30M PRN IV 03/01/25 13:30 Diagnostic Test (Pha) 1 strip ACHS 03/01/25 17:00 03/04/25 11:23 1 STRIP Insulin Human Regular HS SC 03/01/25 22:00 03/02/25 22:16 4 UNITS Insulin Human Regular AC SC 03/01/25 17:00 03/03/25 17:24 3 UNITS Dextrose 50 ml UD PRN IV 03/01/25 13:30 Aspirin 81 mg DAILY PO 03/02/25 10:00 03/03/25 09:15 81 MG Clopidogrel Bisulfate 75 mg DAILY PO 03/02/25 10:00 03/03/25 09:12 75 MG Patient Own Medication 1 tab DAILY PO 03/02/25 10:00 UNV Patient Own Medication 1 tab DAILY PO 03/02/25 10:00 Cancel Patient Own Medication 1 tab DAILY PO 03/02/25 10:00 UNV Atorvastatin Calcium 40 mg HS PO 03/01/25 22:00 03/03/25 21:32 40 MG Isosorbide Mononitrate 30 mg DAILY PO 03/02/25 10:00 03/04/25 09:27 30 MG Enalapril Maleate 20 mg DAILY PO 03/02/25 10:00 03/04/25 09:17 20 MG Hydralazine HCl 10 mg Q6HR IV 03/01/25 18:00 03/04/25 00:46 10 MG Laboratory Results Laboratory Tests 03/04/25 06:08 Chemistry Test 03/04/25 06:08 Calcium Level 9.7 mg/dL (8.7-10.4) Coagulation Test 03/03/25 23:05 03/04/25 06:08 Prothrombin Time 11.2 sec (9.3-11.8) 11.1 sec (9.3-11.8) Prothrombin Time INR 1.06 (0.9-1.15) 1.05 (0.9-1.15) Activated Partial Thromboplast Time 30.2 SEC (24.5-34.5) 29.5 SEC (24.5-34.5) Microbiology Microbiology Date/Time Source Procedure Growth Status 03/01/25 22:14 Nose MRSA Screen - Final Complete Assessment/Plan Assessment/Plan Assessment: Hyponatremia, Uncontrolled hypertension, Hyperlipidemia, Coronary artery disease, Diabetes, Dizziness AV block type 2 Continuing current management Waiting for still operator batch or continuous to see the patient. Replace electrolytes. Continuing sliding scale insulin. Continuing hypertensive medication. Pacemaker place today. This medical document was created using an electronic medical record system with [employer] direct computerized dictation system. Although this document has been carefully reviewed, there may still be some phonetic and typographical errors. These areas are purely typographical due to imperfections of the software programs, and do not reflect any compromise in the patient's medical care. Plan discussed with: Daughter, Son My Orders Orders - ANGELO HARLEY MD Procedure Category Date Status Time Electrocardigram EKG 03/04/25 Logged 01:48 Date of Service: Mar 04, 2025 Billing Provider: ANGELO HARLEY MD Common Visit Codes: [id number] INP/OBS CARE(HIGH) ANGELO HARLEY MD Mar 04, 2025 12:11
[2025-03-04] MEDS: VANCOMYCIN HCL 1000 MG VL ONE (13:15)
[2025-03-04] MEDS: MIDAZOLAM HCL 2MG/2ML 2ml VIAL (1mg/ml) ONE ×2 (13:15→13:52)
[2025-03-04] MEDS: fentaNYL CITRATE 100 MCG/2 ML VL ONE (13:15)
[2025-03-04] MEDS: VANCOMYCIN 1GM/250ML KIT 250 ML IV ONE (13:16)
[2025-03-04] MEDS: LIDOCAINE 2%HCL (LOCAL ANESTH.) INJ 20ML MDV ONE (13:16)
[2025-03-04] MEDS: IODIXANOL 320MG/ML 100ML BTL IV ONE (13:16)
--- NOTE | 2025-03-04 14:45 | DVHOP2 ---
Operative Report - 2 Report Details Date: 03/04/25 Preop Diagnosis: Sick sinus syndrome Postop Diagnosis: Successful placement of DDD pacemaker Surgeon: Awa Schneider MD Anesthesiologist: Conscious sedation Anesthesia: Mac, Local Consent: The patient was informed of the risks and benefits of the procedure. These include but are not limited to complications of anesthesia, postoperative infection, incomplete relief of symptoms, recurrence of symptoms, damage to blood vessels, nerves and tendons, deep venous thrombosis, pulmonary embolism and possible need for repeat surgery in the future. Complications: No complications Findings: Successful placement of dual-chamber pacemaker Indications for Surgery: Second-degree AV block Name of Procedure Performed Permanent pacemaker implantation Procedure Details Procedure Details: Prior local anesthesia with 2% lidocaine the left pectoral area and full informed consent obtained and conscious sedation given an incision was made over the left pectoral area and dissection planes with the electrocautery and blunt dissection was performed followed by placement of a link bird needle into the subclavian vein under fluoroscopic guidance subsequent to a venogram. Peel-away sheaths were then placed with active fixation electrodes into the RV apex and right atrial appendage. After adequate capture and sensitivity thresholds these were sutured with 0 Ethibond and connected to a generator under the pectoral fascia. The pocket was closed with a 3-0 Vicryl and 4-0 Monocryl was used to close the skin without complications. Leads placed were Biotronik . A Solia S45 lead was placed into the right atrium. Serial [id number]. A threshold was obtained at 1.5 volts at 0.4 milliseconds and 665 Ohms of impedance with a P-wave of 3.5. The RV lead is a Solia S 53 serial [id number]. [id number] by [employer]ronik. R-wave of eight with the threshold at 0.7 volts at 0.4 milliseconds and 725 Ohms of impedance. The pacemaker generator is an AMViA edge DRT-T by [employer]ron[employer] serial [id number]. Programmed parameters were DDDR mode at a rate of 60/130 with an AV delay of 190/160. PVARP at 275 milliseconds RA sensitivity at 0.5 mV RV sensitivity at 2 mV RV output of 3.5 at 0.4 milliseconds. A chest x-ray was ordered for evaluation of placement. EKG was also ordered. There were no complications patient tolerated the procedure well Condition Good Disposition Still a Patient Date of Service: Mar 04, 2025 Billing Provider: AWA SCHNEIDER Sr., MD Cardiology Common Codes: [id number] INP/OBS CARE (High) Card. Pacer Implants/Gen [id number]/REPLACE DUAL LEAD PACER AWA SCHNEIDER Sr., MD Mar 04, 2025 14:45
--- NOTE | 2025-03-04 15:03 | DVH ---
CHEST RADIOGRAPH Indication: S/P PACEMAKER Technique: Single frontal view of the chest was obtained COMPARISON: XY CHEST PORTABLE on DOS: 03/01/25, XY CHEST XRAY 1 VIEW on DOS: 08/08/24, XY CHEST XRAY 1 VIEW on DOS: 07/26/24, XY CHEST PORTABLE on DOS: 12/17/23, CT CT ANGIO CHEST CONTRAST on DOS: 12/12/23 FINDINGS: Lines and Tubes: Left chest pacemaker Lungs: Clear Pleura: No effusion. No pneumothorax. Cardiomediastinal contours: Unremarkable Bones: Unremarkable IMPRESSION: No acute disease.
[2025-03-04] MEDS: HYDROcodone-ACET 5/325MG TAB PO PRN (22:16)
[2025-03-05] VITALS (8 sets, daily range): BP systolic 112–139; BP diastolic 64–82; PULSE 88–104; RESP 17–18; TEMP 96.7–98.2; O2SAT 97–98
--- NOTE | 2025-03-05 06:39 | DVH ---
CHEST RADIOGRAPH Indication: CXR FOR PACEMAKER/ICD LEAD PLACEMENT Technique: Single frontal view of the chest was obtained COMPARISON: XY CHEST PORTABLE on DOS: 03/04/25, XY CHEST PORTABLE on DOS: 03/01/25, XY CHEST XRAY 1 VIE W on DOS: 08/08/24, XY CHEST XRAY 1 VIEW on DOS: 07/26/24, XY CHEST PORTABLE on DOS: 12/17/23 FINDINGS: Lines and Tubes: None. Left anterior chest wall cardiac pacing device. Lungs: Clear Pleura: No effusion. No pneumothorax. Cardiomediastinal contours: Unremarkable Bones: Unremarkable IMPRESSION: 1. No acute disease.
[2025-03-05 11:05] LABS: Hematocrit 40.4 % (36.0-46.0); Hemoglobin 14.0 g/dL (12.2-16.2); Mean Corpuscular Hemoglobin 30.8 pg (28.0-32.0); Mean Corpuscular Volume 88.7 fL (80.0-100.0); Nucleated Red Blood Cells % 0.0 %
[2025-03-05 11:42] LABS: Alanine Aminotransferase 29 U/L (7-40); Albumin 4.4 g/dL (3.2-4.8); Alkaline Phosphatase 61 U/L (46-116); Anion Gap 17 (5-15); BUN/Creatinine Ratio 22.1 (10.0-20.0); Blood Urea Nitrogen 15 mg/dL (9-23); Calcium 9.1 mg/dL (8.7-10.4); Chloride 102 mmol/L (98-107); Potassium 3.9 mmol/L (3.5-5.1); Total Protein 6.8 g/dL (5.7-8.2)
[2025-03-05 12:00] LABS: Bilirubin, Total 1.5 mg/dL (0.2-1.0); Carbon Dioxide 16 mmol/L (20-31); Glucose 242 mg/dL (74-106); Sodium 135 mmol/L (136-145)
--- NOTE | 2025-03-05 14:49 | DVHPN2 ---
Subjective The patient is seen and examined at bedside. The patient feel dizzy but no other complaint. Pacemaker placement done Reviewed: Care Plan, H&P, Labs, Medications, Previous Orders, Radiology Changes from previous H/P or p: No Changes Eyes: No Pain, No Vision change, No Conjunctivae inflammation, No Eyelid inflammation, No Other, No Redness ENT: No Ear pain, No Ear discharge, No Nose pain, No Nose discharge, No Nose congestion, No Mouth pain, No Mouth swelling, No Throat pain, No Throat swelling, No Other Cardiovascular: Chest Pain (pressure); No Palpitations, No Orthopnea, No Paroxysmal Noc. Dyspnea, No Edema, No Lt Headedness, No Other Respiratory: No Cough, No Dry, No Shortness of breath, No SOB with excertion, No Wheezing, No Hemoptysis, No Pleuritic Pain, No Sputum, No Other Gastrointestinal: No Nausea, No Vomiting, No Abdominal Pain, No Diarrhea, No Constipation, No Melena, No Hematochezia, No Other Genitourinary: No Dysuria, No Frequency, No Incontinence, No Hematuria, No Retention, No Other Musculoskeletal: No other, No neck pain, No shoulder pain, No arm pain, No back pain, No hand pain, No leg pain, No foot pain Skin: No Rash, No Lesions, No Jaundice, No Bruising, No Other Objective Vitals Vital Signs Date Time Temp Pulse Resp B/P (MAP) Pulse Ox O2 Delivery O2 Flow Rate FiO2 03/05/25 11:35 127/61 03/05/25 09:00 96.8 94 18 98 96.8 03/05/25 08:00 Room Air* 0 21 Intake/Output Intake and Output 03/05/25 07:00 Intake Total 750 ml Balance 750 ml Intake Oral 750 ml # Voids 3 General Appearance: Alert, Oriented X3, Cooperative, No acute distress HEENT: Atraumatic, PERRLA, EOMI, Mucous membr. moist/pink Neck: Supple Lungs: Clear to auscultation, Normal air movement Cardiovascular: Regular rate, Normal S1, Normal S2, No murmurs, Gallops, Rubs Abdomen: Normal bowel sounds, Soft, No tenderness Neuro: Cranial nerves 3-12 NL Psych/Mental Status: Mental status NL Medications Current Medications Medications Dose Ordered Sig/Bailey Route Start Time Stop Time Status Last Admin Dose Admin Sodium Chloride 10 ml Q8HR IV 03/01/25 14:00 03/05/25 13:26 10 ML Acetaminophen/ Hydrocodone Bitart 1 tab Q4HP PRN PO 03/01/25 13:30 03/05/25 14:15 1 TAB Ondansetron HCl 4 mg Q4HP PRN IV 03/01/25 13:30 Docusate Sodium 100 mg BIDPRN PRN PO 03/01/25 13:30 Acetaminophen 650 mg Q6HP PRN PO 03/01/25 13:30 Nitroglycerin 0.4 mg Q5MINP PRN SL 03/01/25 13:30 Morphine Sulfate 2 mg Q30M PRN IV 03/01/25 13:30 Diagnostic Test (Pha) 1 strip ACHS 03/01/25 17:00 03/05/25 11:35 1 STRIP Insulin Human Regular HS SC 03/01/25 22:00 03/04/25 22:14 4 UNITS Insulin Human Regular AC SC 03/01/25 17:00 03/05/25 11:42 9 UNITS Dextrose 50 ml UD PRN IV 03/01/25 13:30 Aspirin 81 mg DAILY PO 03/02/25 10:00 03/05/25 09:10 81 MG Clopidogrel Bisulfate 75 mg DAILY PO 03/02/25 10:00 03/05/25 09:11 75 MG Patient Own Medication 1 tab DAILY PO 03/02/25 10:00 UNV Patient Own Medication 1 tab DAILY PO 03/02/25 10:00 Cancel Patient Own Medication 1 tab DAILY PO 03/02/25 10:00 UNV Atorvastatin Calcium 40 mg HS PO 03/01/25 22:00 03/04/25 22:02 40 MG Isosorbide Mononitrate 30 mg DAILY PO 03/02/25 10:00 03/05/25 09:10 30 MG Enalapril Maleate 20 mg DAILY PO 03/02/25 10:00 03/05/25 09:09 20 MG Hydralazine HCl 10 mg Q6HR IV 03/01/25 18:00 03/05/25 11:35 10 MG Laboratory Results Laboratory Tests 03/05/25 10:30 Chemistry Test 03/05/25 10:30 Albumin 4.4 g/dL (3.2-4.8) Calcium Level 9.1 mg/dL (8.7-10.4) Total Protein 6.8 g/dL (5.7-8.2) LFT Test 03/05/25 10:30 Alanine Aminotransferase (ALT) 29 U/L (7-40) Alkaline Phosphatase 61 U/L (46-116) Aspartate Amino Transferase (AST) 42 U/L (13-40) H Total Bilirubin 1.5 mg/dL (0.2-1.0) H Microbiology Microbiology Date/Time Source Procedure Growth Status 03/01/25 22:14 Nose MRSA Screen - Final Complete Assessment/Plan Assessment/Plan Assessment: Hyponatremia, Uncontrolled hypertension, Hyperlipidemia, Coronary artery disease, Diabetes, Dizziness AV block type 2 Continuing current management Waiting for perl developer to see the patient. Replace electrolytes. Continuing sliding scale insulin. Continuing hypertensive medication. Pacemaker placed DC when clear by perl developer. This medical document was created using an electronic medical record system with [employer] computerized dictation system. Although this document has been carefully reviewed, there may still be some phonetic and typographical errors. These areas are purely typographical due to imperfections of the software programs, and do not reflect any compromise in the patient's medical care. Plan discussed with: Patient Date of Service: Mar 05, 2025 Billing Provider: ANGELO HARLEY MD Common Visit Codes: [id number] INP/OBS CARE(HIGH) ANGELO HARLEY MD Mar 05, 2025 14:49
[2025-03-06] VITALS (7 sets, daily range): BP systolic 101–143; BP diastolic 53–78; PULSE 96–105; RESP 18–20; TEMP 97–99.9; O2SAT 96–97
[2025-03-06] MEDS: ACETAMINOPHEN 325 MG TAB PO PRN (04:54)
[2025-03-06 06:24] LABS: Chloride 104 mmol/L (98-107); Potassium 3.6 mmol/L (3.5-5.1)
[2025-03-06 06:25] LABS: Anion Gap 13 (5-15)
[2025-03-06 06:26] LABS: Calcium 9.1 mg/dL (8.7-10.4)
[2025-03-06 06:30] LABS: BUN/Creatinine Ratio 13.1 (10.0-20.0)
[2025-03-06 06:42] LABS: Blood Urea Nitrogen 8 mg/dL (9-23); Carbon Dioxide 18 mmol/L (20-31); Glucose 163 mg/dL (74-106); Sodium 135 mmol/L (136-145)
[2025-03-06 07:15] LABS: Hematocrit 36.7 % (36.0-46.0); Hemoglobin 12.6 g/dL (12.2-16.2); Mean Corpuscular Hemoglobin 31.0 pg (28.0-32.0); Mean Corpuscular Volume 90.0 fL (80.0-100.0); Nucleated Red Blood Cells % 0.2 %
[2025-03-06 08:09] LABS: Anisocytosis Slight; Ovalocytes FEW
--- NOTE | 2025-03-06 09:45 | ECG ---
[facility] Test Date: 2025-03-04 Test Time: 15:05:56 Pat Name: LAURITA HAAS Department: Room: [facility]7T B Gender: F Software Implementation Specialist: LESLEY : 1950 Requested By: GARCIA SCHNEIDER Order Number: [id number] Reading MD: Garcia Schneider Measurements Intervals [place] Rate: 71 P: 38 AL: 200 QRS: 16 QRSD: 132 T: 23 QT: 448 QTc: 486 Interpretive Statements Demand pacemaker, interpretation is based on intrinsic rhythm Sinus rhythm with occasional premature ventricular complexes and fusion complexes Right bundle branch block Inferior infarct , age undetermined Electronically Signed On 03-07-2025 18:24:46 PDT by Garcia Schneider Please click the below link to view image of tracing.
--- NOTE | 2025-03-06 09:45 | ECG ---
[facility] Test Date: 2025-03-04 Test Time: 15:06:51 Pat Name: LAURITA HAAS [facility] F Videotape Editor: LESLEY : 1950 Requested By: GARCIA SCHNEIDER Order Number: [id number] Reading MD: Garcia Schneider Measurements Intervals [place] Rate: 71 P: 48 [place]: 228 QRS: 8 QRSD: 130 T: 10 QT: 452 QTc: 491 Interpretive Statements Sinus rhythm with 1st degree AV block Right bundle branch block Inferior infarct , age undetermined Electronically Signed On 03-07-2025 18:25:25 PDT by Garcia Schneider Please click the below link to view image of tracing.
[2025-03-06] MEDS: DOCUSATE SOD 100 MG CAP PO PRN (11:35)
--- NOTE | 2025-03-06 12:22 | DVHPN2 ---
Subjective The patient is seen and examined at bedside. The patient feel dizzy but no other complaint. Pacemaker placement done Reviewed: Care Plan, H&P, Labs, Medications, Previous Orders, Radiology Changes from previous H/P or p: No Changes Eyes: No Pain, No Vision change, No Conjunctivae inflammation, No Eyelid inflammation, No Other, No Redness ENT: No Ear pain, No Ear discharge, No Nose pain, No Nose discharge, No Nose congestion, No Mouth pain, No Mouth swelling, No Throat pain, No Throat swelling, No Other Cardiovascular: Chest Pain (pressure); No Palpitations, No Orthopnea, No Paroxysmal Noc. Dyspnea, No Edema, No Lt Headedness, No Other Respiratory: No Cough, No Dry, No Shortness of breath, No SOB with excertion, No Wheezing, No Hemoptysis, No Pleuritic Pain, No Sputum, No Other Gastrointestinal: No Nausea, No Vomiting, No Abdominal Pain, No Diarrhea, No Constipation, No Melena, No Hematochezia, No Other Genitourinary: No Dysuria, No Frequency, No Incontinence, No Hematuria, No Retention, No Other Musculoskeletal: No other, No neck pain, No shoulder pain, No arm pain, No back pain, No hand pain, No leg pain, No foot pain Skin: No Rash, No Lesions, No Jaundice, No Bruising, No Other Objective Vitals Vital Signs Date Time Temp Pulse Resp B/P (MAP) Pulse Ox O2 Delivery O2 Flow Rate FiO2 03/06/25 11:10 179/85 03/06/25 09:00 97.0 105 20 97 97.0 03/06/25 08:10 Room Air* 0 21 Intake/Output Intake and Output 03/06/25 07:00 Intake Total 2400 ml Output Total 3 ml Balance 2397 ml Intake Oral 2400 ml Output Urine Total 3 ml # Voids 2 General Appearance: Alert, Oriented X3, Cooperative, No acute distress HEENT: Atraumatic, PERRLA, EOMI, Mucous membr. moist/pink Neck: Supple Lungs: Clear to auscultation, Normal air movement Cardiovascular: Regular rate, Normal S1, Normal S2, No murmurs, Gallops, Rubs Abdomen: Normal bowel sounds, Soft, No tenderness Neuro: Cranial nerves 3-12 NL Psych/Mental Status: Mental status NL Medications Current Medications Medications Dose Ordered Sig/Bailey Route Start Time Stop Time Status Last Admin Dose Admin Sodium Chloride 10 ml Q8HR IV 03/01/25 14:00 03/06/25 06:00 10 ML Acetaminophen/ Hydrocodone Bitart 1 tab Q4HP PRN PO 03/01/25 13:30 03/06/25 11:07 1 TAB Ondansetron HCl 4 mg Q4HP PRN IV 03/01/25 13:30 Docusate Sodium 100 mg BIDPRN PRN PO 03/01/25 13:30 03/06/25 11:35 100 MG Acetaminophen 650 mg Q6HP PRN PO 03/01/25 13:30 03/06/25 04:54 650 MG Nitroglycerin 0.4 mg Q5MINP PRN SL 03/01/25 13:30 Morphine Sulfate 2 mg Q30M PRN IV 03/01/25 13:30 Diagnostic Test (Pha) 1 strip ACHS 03/01/25 17:00 03/06/25 11:35 1 STRIP Insulin Human Regular HS SC 03/01/25 22:00 03/05/25 20:55 3 UNITS Insulin Human Regular AC SC 03/01/25 17:00 03/06/25 11:39 6 UNITS Dextrose 50 ml UD PRN IV 03/01/25 13:30 Aspirin 81 mg DAILY PO 03/02/25 10:00 03/06/25 11:09 81 MG Clopidogrel Bisulfate 75 mg DAILY PO 03/02/25 10:00 03/06/25 11:09 75 MG Patient Own Medication 1 tab DAILY PO 03/02/25 10:00 UNV Patient Own Medication 1 tab DAILY PO 03/02/25 10:00 Cancel Patient Own Medication 1 tab DAILY PO 03/02/25 10:00 UNV Atorvastatin Calcium 40 mg HS PO 03/01/25 22:00 03/05/25 20:37 40 MG Isosorbide Mononitrate 30 mg DAILY PO 03/02/25 10:00 03/06/25 11:09 30 MG Enalapril Maleate 20 mg DAILY PO 03/02/25 10:00 03/06/25 11:10 20 MG Hydralazine HCl 10 mg Q6HR IV 03/01/25 18:00 03/06/25 05:02 10 MG Laboratory Results Laboratory Tests 03/06/25 04:52 Chemistry Test 03/06/25 04:52 Calcium Level 9.1 mg/dL (8.7-10.4) Microbiology Microbiology Date/Time Source Procedure Growth Status 03/01/25 22:14 Nose MRSA Screen - Final Complete Labs and/or images reviewed: Labs reviewed by me Assessment/Plan Assessment/Plan Assessment: Hyponatremia, Uncontrolled hypertension, Hyperlipidemia, Coronary artery disease, Diabetes, Dizziness AV block type 2 Continuing current management Waiting for assistant finance manager to see the patient. Replace electrolytes. Continuing sliding scale insulin. Continuing hypertensive medication. Pacemaker placed DC when clear by assistant finance manager. This medical document was created using an electronic medical record system with [employer] computerized dictation system. Although this document has been carefully reviewed, there may still be some phonetic and typographical errors. These areas are purely typographical due to imperfections of the software programs, and do not reflect any compromise in the patient's medical care. Plan discussed with: Patient Date of Service: Mar 06, 2025 Billing Provider: ANGELO HARLEY MD Common Visit Codes: [id number] INP/OBS CARE(HIGH) ANGELO HARLEY MD Mar 06, 2025 12:22
[2025-03-07] VITALS (7 sets, daily range): BP systolic 111–133; BP diastolic 56–77; PULSE 75–91; RESP 16–18; TEMP 96.7–99.2; O2SAT 94–100
[2025-03-07 07:12] LABS: Hematocrit 35.0 % (36.0-46.0); Hemoglobin 12.2 g/dL (12.2-16.2); Mean Corpuscular Hemoglobin 31.5 pg (28.0-32.0); Mean Corpuscular Volume 90.7 fL (80.0-100.0); Nucleated Red Blood Cells % 0.1 %
[2025-03-07 07:20] LABS: Chloride 103 mmol/L (98-107); Potassium 3.9 mmol/L (3.5-5.1)
[2025-03-07 07:21] LABS: Anion Gap 11 (5-15); Calcium 9.2 mg/dL (8.7-10.4); Carbon Dioxide 21 mmol/L (20-31)
[2025-03-07 07:26] LABS: BUN/Creatinine Ratio 11.5 (10.0-20.0)
[2025-03-07 07:38] LABS: Blood Urea Nitrogen 7 mg/dL (9-23); Glucose 135 mg/dL (74-106); Sodium 135 mmol/L (136-145)
--- NOTE | 2025-03-07 09:39 | DVHPN2 ---
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 Dressing to left upper chest is clean, dry, and intact Objective vital signs Vital Sign Date Time Temp Pulse Resp B/P (MAP) Pulse Ox O2 Delivery O2 Flow Rate FiO2 03/07/25 09:00 99.2 81 18 125/70 (88) 95 99.2 03/07/25 07:58 Room Air* 0 21 Total Intake and Output 03/06/25 03/06/25 03/07/25 14:59 22:59 06:59 Intake Total 1200 ml 100 ml Balance 1200 ml 100 ml medications Current Medications Medications Dose Ordered Sig/Bailey Route Start Time Stop Time Status Last Admin Dose Admin Sodium Chloride 10 ml Q8HR IV 03/01/25 14:00 03/07/25 06:18 10 ML Acetaminophen/ Hydrocodone Bitart 1 tab Q4HP PRN PO 03/01/25 13:30 03/07/25 06:15 1 TAB Ondansetron HCl 4 mg Q4HP PRN IV 03/01/25 13:30 Docusate Sodium 100 mg BIDPRN PRN PO 03/01/25 13:30 03/07/25 08:50 100 MG Acetaminophen 650 mg Q6HP PRN PO 03/01/25 13:30 03/06/25 04:54 650 MG Nitroglycerin 0.4 mg Q5MINP PRN SL 03/01/25 13:30 Morphine Sulfate 2 mg Q30M PRN IV 03/01/25 13:30 Diagnostic Test (Pha) 1 strip ACHS 03/01/25 17:00 03/07/25 06:17 1 STRIP Insulin Human Regular HS SC 03/01/25 22:00 03/06/25 22:07 3 UNITS Insulin Human Regular AC SC 03/01/25 17:00 03/06/25 17:51 2 UNITS Dextrose 50 ml UD PRN IV 03/01/25 13:30 Aspirin 81 mg DAILY PO 03/02/25 10:00 03/07/25 08:48 81 MG Clopidogrel Bisulfate 75 mg DAILY PO 03/02/25 10:00 03/07/25 08:50 75 MG Patient Own Medication 1 tab DAILY PO 03/02/25 10:00 UNV Patient Own Medication 1 tab DAILY PO 03/02/25 10:00 Cancel Patient Own Medication 1 tab DAILY PO 03/02/25 10:00 UNV Atorvastatin Calcium 40 mg HS PO 03/01/25 22:00 03/06/25 21:27 40 MG Isosorbide Mononitrate 30 mg DAILY PO 03/02/25 10:00 03/07/25 08:49 30 MG Enalapril Maleate 20 mg DAILY PO 03/02/25 10:00 03/07/25 08:49 20 MG Hydralazine HCl 10 mg Q6HR IV 03/01/25 18:00 03/06/25 05:02 10 MG Examination: GENERAL:Normal, LUNGS:Normal, CVS:Normal, NEURO:Normal laboratory and microbiology Laboratory Tests 03/07/25 05:51 Test 03/07/25 05:51 Range/Units Serum Glucose 135 H 74-106 mg/dL Problem List/Assessment/Plan Problem List/Assessment/Plan Intermittent second degree type II atrioventricular block, status post permanent pacemaker insertion ([facility]) Severe triple-vessel coronary artery disease (takes Plavix and aspirin) Hypertension Dyslipidemia Type 2 diabetes mellitus History of breast cancer status post lumpectomy and radiation Obesity Plan/Recommendations (Dr. Schneider): Case discussed with . The patient underwent a permanent pacemaker implantation on 03/04/2025 without any adversities. The patient underwent a pacemaker interrogation with [facility] obstetrics technician, Horace, which shows no abnormalities. There is no further inpatient cardiac workup indicated at this time. Cardiology will sign off. The patient has been scheduled to follow up with our cardiology clinic in the outpatient setting on 03/11/25 at 1:30pm (wound check), 03/21/25 at 09:45am (pacemaker interrogation), and 03/25/25 at 11:15am with culture media laboratory assistant visit with . This medical document was created using an electronic medical record system with voice recognition software and computerized dictation system. Although this document has been carefully reviewed, there might still be some phonetic and typographical errors. Occasional wrong-word or ``sound-alike substitutions may have occurred due to the inherent limitations of voice recognition software. These areas are purely typographical due to imperfections of the software programs and do not reflect any compromise in the patient's medical care. Please read the chart carefully and recognize, using context, where these substitutions have occurred. Plan discussed with: Patient Dietary Evaluation Review Comments: 1) Add cardiac restriciton to 45g CCHO diet 2) Encourage optimal PO intake 3) Follow-up with cardiology 4) Continue to monitor I&O, labs, and skin integrity Expected Outcomes/Goals: 1) appetite and labs to improve 2) f/u in 3-5 days Date of Service: Mar 07, 2025 Billing Provider: JG ELLIOTT Common Visit Codes: [id number] INP/OBS CARE(HIGH) JG ELLIOTT Mar 07, 2025 09:39
--- NOTE | 2025-03-07 14:41 | DVHPN2 ---
Subjective [place]ish-speaking; did not share any complaints; feeling happy to be discharged home Reviewed: Care Plan, H&P, Labs, Medications, Previous Orders, Radiology, Other (Consultation) Changes from previous H/P or p: Changes Objective Vitals Vital Signs Date Time Temp Pulse Resp B/P (MAP) Pulse Ox O2 Delivery O2 Flow Rate FiO2 03/07/25 13:00 98.3 84 18 121/56 (77) 97 98.3 03/07/25 07:58 Room Air* 0 21 Intake/Output Intake and Output 03/07/25 07:00 Intake Total 1300 ml Balance 1300 ml Intake Oral 1300 ml # Voids 5 General Appearance: Alert, Oriented X3, Cooperative, No acute distress HEENT: Atraumatic Neck: Supple Lungs: Clear to auscultation, Normal air movement Chest/Breasts: Other (Pacemaker insertion site with clean dressing with mild tenderness with no signs of bleeding/infection) Cardiovascular: Regular rate, Normal S1, Normal S2, No murmurs Abdomen: Normal bowel sounds, Soft, No tenderness Extremities: No edema Neuro: Normal speech, Cranial nerves 3-12 NL Psych/Mental Status: Mental status NL, Mood NL Medications Current Medications Medications Dose Ordered Sig/Bailey Route Start Time Stop Time Status Last Admin Dose Admin Sodium Chloride 10 ml Q8HR IV 03/01/25 14:00 03/07/25 06:18 10 ML Acetaminophen/ Hydrocodone Bitart 1 tab Q4HP PRN PO 03/01/25 13:30 03/07/25 10:52 1 TAB Ondansetron HCl 4 mg Q4HP PRN IV 03/01/25 13:30 Docusate Sodium 100 mg BIDPRN PRN PO 03/01/25 13:30 03/07/25 08:50 100 MG Acetaminophen 650 mg Q6HP PRN PO 03/01/25 13:30 03/06/25 04:54 650 MG Nitroglycerin 0.4 mg Q5MINP PRN SL 03/01/25 13:30 Morphine Sulfate 2 mg Q30M PRN IV 03/01/25 13:30 Diagnostic Test (Pha) 1 strip ACHS 03/01/25 17:00 03/07/25 10:56 1 STRIP Insulin Human Regular HS SC 03/01/25 22:00 03/06/25 22:07 3 UNITS Insulin Human Regular AC SC 03/01/25 17:00 03/07/25 11:02 9 UNITS Dextrose 50 ml UD PRN IV 03/01/25 13:30 Aspirin 81 mg DAILY PO 03/02/25 10:00 03/07/25 08:48 81 MG Clopidogrel Bisulfate 75 mg DAILY PO 03/02/25 10:00 03/07/25 08:50 75 MG Patient Own Medication 1 tab DAILY PO 03/02/25 10:00 UNV Patient Own Medication 1 tab DAILY PO 03/02/25 10:00 Cancel Patient Own Medication 1 tab DAILY PO 03/02/25 10:00 UNV Atorvastatin Calcium 40 mg HS PO 03/01/25 22:00 03/06/25 21:27 40 MG Isosorbide Mononitrate 30 mg DAILY PO 03/02/25 10:00 03/07/25 08:49 30 MG Enalapril Maleate 20 mg DAILY PO 03/02/25 10:00 03/07/25 08:49 20 MG Hydralazine HCl 10 mg Q6HR IV 03/01/25 18:00 03/06/25 05:02 10 MG Laboratory Results Laboratory Tests 03/07/25 05:51 Chemistry Test 03/07/25 05:51 Calcium Level 9.2 mg/dL (8.7-10.4) Microbiology Microbiology Date/Time Source Procedure Growth Status 03/01/25 22:14 Nose MRSA Screen - Final Complete Labs and/or images reviewed: Labs reviewed by me, Image(s) reviewed by me Assessment/Plan Assessment/Plan Covering: Intermittent second degree type II atrioventricular block, status post permanent pacemaker insertion on March 04, 2025 ([facility]) Severe triple-vessel coronary artery disease Hypertensive heart disease without heart failure Dyslipidemia Type 2 diabetes mellitus History of breast cancer status post lumpectomy and radiation Obesity Continue home clopidogrel, aspirin and statin upon discharge Continue home antihypertensive medications upon discharge Counseled the patient on the importance of adopting healthy lifestyle with diet and exercise in order to lose weight Continue home antidiabetic medications To follow up with Dr. Schneider as scheduled To follow up with Dr. Munoz next Friday for post hospital discharge follow up Goals of care discussed with the patient and her for 20 minutes; full code Late Entry. This medical document was created using an electronic medical record system with computerized dictation system. Although this document has been carefully reviewed, there might still be some phonetic and typographical errors. These areas are purely typographical due to imperfections of the software programs, and do not reflect any compromise in the patient's medical care. Plan discussed with: Patient, Spouse, Other (Nurse) Date of Service: Mar 07, 2025 Billing Provider: QUIN MUNOZ MD Common Visit Codes: [id number] INP/OBS CARE(MOD) Secondary Visit Codes: [id number] CARE PLAN 30 MINUTES (20 minutes ) QUIN MUNOZ MD Mar 07, 2025 14:41
--- NOTE | 2025-03-07 14:49 | DVHDS2 ---
Discharge Summary Date of Admission Mar 01, 2025 at 13:28 Date of Discharge: Mar 07, 2025 Admitting Diagnosis Chest pain Wounds: Pacemaker insertion surgical wound Labs/Diagnostic Data: Laboratory Results Test 03/07/25 10:54 03/07/25 05:51 03/06/25 04:52 03/05/25 10:30 POC Glucose 274 mg/dl (70-106) White Blood Count 6.4 10^3/uL (4.4-10.8) Red Blood Count 3.86 10^6/uL (4.0-5.20) Hemoglobin 12.2 g/dL (12.2-16.2) Hematocrit 35.0 % (36.0-46.0) Mean Corpuscular Volume 90.7 fL (80.0-100.0) Mean Corpuscular Hemoglobin 31.5 pg (28.0-32.0) Mean Corpuscular Hemoglobin Concent 34.7 g/dL (32.0-36.0) Red Cell Distribution Width 14.6 % (11.8-14.3) Platelet Count 255 10^3/uL (140-450) Mean Platelet Volume 7.8 fL (6.9-10.8) Neutrophils (%) (Auto) 59.5 % (37.0-80.0) Lymphocytes (%) (Auto) 21.8 % (10.0-50.0) Monocytes (%) (Auto) 14.7 % (0.0-12.0) Eosinophils (%) (Auto) 3.2 % (0.0-7.0) Basophils (%) (Auto) 0.8 % (0.0-2.0) Neutrophils # (Auto) 3.8 10 ^3/uL (1.6-8.6) Lymphocytes # (Auto) 1.4 10 ^3/uL (0.4-5.4) Monocytes # (Auto) 0.9 10 ^3/uL (0-1.3) Eosinophils # (Auto) 0.2 10 ^3/uL (0-0.8) Basophils # (Auto) 0 10 ^3/uL (0-0.2) Nucleated Red Blood Cells 0.1 % Sodium Level 135 mmol/L (136-145) Potassium Level 3.9 mmol/L (3.5-5.1) Chloride Level 103 mmol/L (98-107) Carbon Dioxide Level 21 mmol/L (20-31) Anion Gap 11 (5-15) Blood Urea Nitrogen 7 mg/dL (9-23) Creatinine 0.61 mg/dL (0.550-1.02) Glomerular Filtration Rate Calc 93 mL/min (>90) BUN/Creatinine Ratio 11.5 (10.0-20.0) Serum Glucose 135 mg/dL (74-106) Calcium Level 9.2 mg/dL (8.7-10.4) Platelet Estimate Adequate Anisocytosis (manual) Slight Ovalocytes Few Dunn Cells Few Total Bilirubin 1.5 mg/dL (0.2-1.0) Aspartate Amino Transferase (AST) 42 U/L (13-40) Alanine Aminotransferase (ALT) 29 U/L (7-40) Alkaline Phosphatase 61 U/L (46-116) Total Protein 6.8 g/dL (5.7-8.2) Albumin 4.4 g/dL (3.2-4.8) Test 03/04/25 06:08 03/02/25 06:24 03/01/25 03:43 03/01/25 00:20 Prothrombin Time 11.1 sec (9.3-11.8) Prothrombin Time INR 1.05 (0.9-1.15) Activated Partial Thromboplast Time 29.5 SEC (24.5-34.5) Hemoglobin A1c 6.2 % A1C (<5.7) Magnesium Level 1.7 mg/dL (1.6-2.6) Triglycerides Level 126 mg/dL (< 150) Cholesterol Level 114 mg/dL (< 200) LDL Cholesterol 54 mg/dL (< 100) HDL Cholesterol 47 mg/dL (40-59) Thyroid Stimulating Hormone (TSH) 2.79 uIU/mL (0.55-4.78) Troponin I High Sensitivity 22 ng/L (</=34) B-Type Natriuretic Peptide 141.60 pg/mL (0-100) Other Laboratory Tests 03/07/25 05:51 Brief Hx & Hospital Course: Covering: A 74-year-old female patient with multiple comorbidities who presented to the emergency department with chest pain; details as below: Chest pain due to intermittent second degree type II atrioventricular block; ACS ruled out Intermittent second degree type II atrioventricular block, status post permanent pacemaker insertion on March 04, 2025 ([facility]) by Dr. Schneider Severe triple-vessel coronary artery disease Hypertensive heart disease without heart failure Metabolic syndrome with dyslipidemia Type 2 diabetes mellitus with A1c of 6.2% History of breast cancer status post lumpectomy and radiation Obesity Continue home clopidogrel, aspirin and statin upon discharge Continue home antihypertensive medications upon discharge Counseled the patient on the importance of adopting healthy lifestyle with diet and exercise in order to lose weight Continue home antidiabetic medications To follow up with Dr. Schneider as scheduled To follow up with Dr. Munoz next Friday for post hospital discharge follow up Late Entry. This medical document was created using an electronic medical record system with computerized dictation system. Although this document has been carefully reviewed, there might still be some phonetic and typographical errors. These areas are purely typographical due to imperfections of the software programs, and do not reflect any compromise in the patient's medical care. Consults/Reason for consult Cardiology for chest pain Operations or Procedures Pacemaker placement on March 04, 2025 Condition at Discharge: Stable Final Diagnosis/Problems List Chest pain due to intermittent second degree type II atrioventricular block; ACS ruled out Intermittent second degree type II atrioventricular block, status post permanent pacemaker insertion on March 04, 2025 ([facility]) by Dr. Schneider Severe triple-vessel coronary artery disease Hypertensive heart disease without heart failure Dyslipidemia Type 2 diabetes mellitus History of breast cancer status post lumpectomy and radiation Obesity Discharge Disposition: Home Discharge Instruct/Medications Diet: Consistent carbohydrate, Cardiac 2g Na,low cholest Activity: No Restrictions, As Tolerated Follow Up/Referral: With Dr. Schneider as scheduled//Dr. Munoz next Friday for post hospital discharge follow up Medications: To continue home medications Scheduled Aspirin (Aspir-Low), 81 MG PO DAILY, (Reported) Atenolol (Atenolol), 1 TAB PO DAILY, (Reported) Atorvastatin Calcium (Atorvastatin Calcium), 1 TAB PO DAILY, (Reported) Clopidogrel Bisulfate (Clopidogrel), 1 TAB PO DAILY, (Reported) Enalapril Maleate (Enalapril Maleate), 1 TAB PO DAILY, (Reported) Isosorbide Mononitrate (Isosorbide Mononitrate Er), 1 TAB PO DAILY, (Reported) Metformin Hydrochloride (Metformin Hcl), 1 TAB PO BID, (Reported) Scheduled PRN Tramadol Hcl (Tramadol Hcl), 1 TAB PO DAILYPRN PRN for PAIN, (Reported) Discharge Statement: "Patient was advised to return to the ER or call 911 if any headaches, dizziness, shortness of breath, chest pain, abdominal pain, bleeding, fevers, or worsening of medical condition. Patient was counseled about treatment plan, medications, possible side effects, patientverbalized understanding. All questions were answered to the best of my ability. This discharge took greater then 30 minutes in planning, reviewing documentation, counseling the patient, and discussing with other team members." ASSESSMENT ASSESSMENT Assessment Date of Service: Mar 07, 2025 Billing Provider: QUIN MUNOZ MD Common Visit Codes: [id number] DISCH DAY >30min QUIN MUNOZ MD Mar 07, 2025 14:49
== END 2025-03-07 18:06 | disposition home or self-care (01) | DRG 243 ==
LOC: ER 23:54 → OVERFLOW 03-01 13:28 → TELE-WESTW 03-01 18:40
PROVIDERS: ADMIT Internal Medicine; ATTEND Internal Medicine
PROC: 0JH606Z Insertion of Pacemaker, Dual Chamber into Chest Subcutaneous Tissue and Fascia, Open Approach (ICD-10-PCS; principal; 2025-03-04)
PROC: 02H63JZ Insertion of Pacemaker Lead into Right Atrium, Percutaneous Approach (ICD-10-PCS; 2025-03-04)
PROC: 02HK3JZ Insertion of Pacemaker Lead into Right Ventricle, Percutaneous Approach (ICD-10-PCS; 2025-03-04)
PROC: B517YZZ Fluoroscopy of Left Subclavian Vein using Other Contrast (ICD-10-PCS; 2025-03-04)
DX: I44.1 Atrioventricular block, second degree (principal); E87.1 Hypo-osmolality and hyponatremia; I25.10 Atherosclerotic heart disease of native coronary artery without angina pectoris; E11.9 Type 2 diabetes mellitus without complications; E78.5 Hyperlipidemia, unspecified; I45.10 Unspecified right bundle-branch block; E66.9 Obesity, unspecified; Z90.49 Acquired absence of other specified parts of digestive tract; Z90.710 Acquired absence of both cervix and uterus; Z79.82 Long term (current) use of aspirin; Z79.84 Long term (current) use of oral hypoglycemic drugs; Z79.899 Other long term (current) drug therapy; Z85.3 Personal history of malignant neoplasm of breast; Z92.3 Personal history of irradiation; Z79.02 Long term (current) use of antithrombotics/antiplatelets; Z68.27 Body mass index [BMI] 27.0-27.9, adult; I11.9 Hypertensive heart disease without heart failure; E88.810 Metabolic syndrome
CPT/HCPCS: 33208; 36012; 36415; 71045; 80048; 80053; 80061; 82962; 83036; 83735; 83880; 84443; 84484; 85025; 85610; 85730; 86850; 86900; 86901; 87081; 93005; 93306; 96374; 99152; 99291; G0378; J1815; J2250; Q9967